=== PATIENT | female | born 1950 | race African-American/Black ===

== ENCOUNTER 2017-11-01 10:25 | Emergency (ER) | payer MEDICARE, MEDICAID ==
[~2017-11-01] VITALS: Ht 157.5 cm; Wt 60.0 kg
[~2017-11-01 10:25] MED LIST: ACET-2853 PO; ALEN70TA46 PO; AMLO5TAB88 PO; CHOL100062 PO; COR3 PO; COUMADIN PO; DILT180C3 PO; DOCU250C69 PO; FERR-63 PO; FLEC50TA2 PO; GABA-531 PO; HYDR-4005 PO; HYDR200T35 PO; LACT10SO6 PO; LIDO40SO4 TP; OMEP20TA2 PO; SODI650T PO; TRAM50TA3 PO; TRIA454O TP; WARF2TAB57 PO
[2017-11-01] MEDS ORDERED: DIAZEPAM 5 MG TABLET PO ONE (11:00)
[2017-11-01 15:30] VITALS: BP 130/86
== END 2017-11-01 18:26 | disposition home or self-care (01) ==
LOC: ER 10:25
DX: M54.12 Radiculopathy, cervical region (principal); I50.9 Heart failure, unspecified; I48.91 Unspecified atrial fibrillation; M32.9 Systemic lupus erythematosus, unspecified; Z96.649 Presence of unspecified artificial hip joint
CPT/HCPCS: 72125; 99284

== ENCOUNTER 2018-07-09 15:29 | Inpatient (IN) | payer MEDICARE, MEDICAID ==
[~2018-07-09] VITALS: Ht 157.5 cm; Wt 51.0 kg
[2018-07-09] MEDS ORDERED: METHYLPREDNISOLONE SOD SUCC 125 MG/2 ML VIAL IV STA (16:12)
[2018-07-09] MEDS ORDERED: IPRATROPIUM/ALBUTEROL 0.5-3(2.5)MG/3ML NEB HHN ONE (16:15)
[2018-07-09] MEDS ORDERED: LEVOFLOXACIN 750MG PREMIX 150 ML IV ONE (16:15)
[2018-07-09 16:47] LABS: CHLORIDE 114 mEq/L (98-107)
[2018-07-09 16:50] LABS: HEMATOCRIT. 35.1 % (36.0-48.0); HEMOGLOBIN. 11.5 g/dL (12.0-16.0); MEAN CORPUSCULAR HEMOGLOBIN 32.8 pg (28.0-32.0); MEAN CORPUSCULAR VOLUME 100.3 fL (81.0-99.0); MEAN PLATELET VOLUME 6.3 fl (7.4-10.4); PLATELET 276 x1000/uL (130-400); RED BLOOD CELL COUNT 3.49 mill/uL (4.2-5.4)
[2018-07-09 17:00] LABS: INR 2.5; PARTIAL THROMBOPLASTIN TIME 30.1 sec (23.4-31.0); PROTHROMBIN TIME 24.6 sec (9.1-11.1)
[2018-07-09 17:08] LABS: BG BASE EXCESS -6.2 mmol/L (-2.0-2.0); BG CARBOXYHEMOGLOBIN 0.8 % (0.5-1.5); BG DEOXYHEMOGLOBIN 11.1 % (0.0-5.0); BG FRACTION INSPIRED OXYGEN 28; BG HCO3 ACT 17.9 mmol/L (22.0-26.0); BG METHEMOGLOBIN 0.3 % (0.0-1.5); BG OXYGEN SATURATION 88.8 % (92.0-98.5); BG OXYHEMOGLOBIN 87.8 % (94.0-97.0); BG PCO2 30.6 mmHg (35.0-45.0); BG PH 7.385 (7.350-7.450); BG PO2 60.3 mmHg (75.0-100.0); BG SAMPLE SITE RIGHT BRACHIAL; BG TOTAL HEMOGLOBIN 10.3 g/dL (12.0-18.0); BG VENT MODE NASAL CANNULA
[2018-07-09 17:45] LABS: ATYPICAL LYMPHOCYTES 2; PLATELET ESTIMATE NORMAL
[2018-07-09] MEDS ORDERED: FUROSEMIDE 40MG/4ML VIAL IVP ONE (17:45)
[2018-07-09] MEDS ORDERED: MAGNESIUM/ALUMINUM HYDROXIDE/SIMETHICONE 30ML UDC PO PRN (22:00)
[2018-07-09] MEDS ORDERED: IPRATROPIUM/ALBUTEROL 0.5-3(2.5)MG/3ML NEB INH PRN (22:00)
[2018-07-09] MEDS ORDERED: HYDROCODONE/APAP 7.5/325MG 1 TAB TABLET PO PRN (22:00)
[2018-07-09] MEDS ORDERED: TRAMADOL 50MG TABLET PO PRN (22:00)
[2018-07-09] MEDS ORDERED: CLONIDINE 0.1MG TABLET PO PRN (22:00)
[2018-07-09 22:30] VITALS: BP 141/66
[2018-07-10] MEDS ORDERED: WARFARIN SODIUM 5MG TABLET PO NR
[2018-07-10] MEDS ORDERED: WARF2.5T47 PO (00:26)
[2018-07-10 00:27] VITALS: BP 114/65
[2018-07-10] MEDS ORDERED: ACET-2708 PO (00:50)
[2018-07-10 04:00] VITALS: BP 125/73
[2018-07-10] MEDS: GABAPENTIN 300MG CAPSULE PO SCH ×4 (06:00→21:40)
[2018-07-10] MEDS: OMEPRAZOLE 20MG CAPSULE EXTENDED RELEASE PO SCH (06:04)
[2018-07-10 07:24] LABS: CHLORIDE 111 mEq/L (98-107)
[2018-07-10 07:30] LABS: PHOSPHORUS 3.4 mg/dL (2.5-4.9)
[2018-07-10 07:32] LABS: HEMATOCRIT. 30.2 % (36.0-48.0); HEMOGLOBIN. 9.6 g/dL (12.0-16.0); MEAN CORPUSCULAR HEMOGLOBIN 31.9 pg (28.0-32.0); MEAN CORPUSCULAR VOLUME 100.1 fL (81.0-99.0); MEAN PLATELET VOLUME 6.4 fl (7.4-10.4); PLATELET 227 x1000/uL (130-400); RED BLOOD CELL COUNT 3.02 mill/uL (4.2-5.4); RED CELL DISTRIBUTION WIDTH 15.1 % (11.6-14.6)
[2018-07-10 08:00] VITALS: BP 121/77
[2018-07-10] MEDS ORDERED: SULF1TAB48 MT (08:02)
[2018-07-10] MEDS ORDERED: COR6 PO (08:02)
[2018-07-10] MEDS ORDERED: FEXO180T87 PO (08:02)
[2018-07-10] MEDS ORDERED: SACC250C9 PO (08:02)
[2018-07-10] MEDS ORDERED: BACL-141 PO (08:02)
[2018-07-10] MEDS ORDERED: FLUT15.88 BOTHNSTRLS (08:02)
[2018-07-10] MEDS ORDERED: HYDROXINE PO (08:02)
[2018-07-10 08:26] LABS: INR 2.9; PROTHROMBIN TIME 28.3 sec (9.1-11.1)
[2018-07-10] MEDS ORDERED: SODIUM BICARBONATE 650 MG TABLET PO SCH (09:00)
[2018-07-10] MEDS ORDERED: AMLODIPINE 5MG TABLET PO SCH (09:00)
[2018-07-10 09:52] LABS: BG BASE EXCESS -6.1 mmol/L (-2.0-2.0); BG CARBOXYHEMOGLOBIN 0.6 % (0.5-1.5); BG DEOXYHEMOGLOBIN 5.7 % (0.0-5.0); BG FRACTION INSPIRED OXYGEN 28; BG HCO3 ACT 17.2 mmol/L (22.0-26.0); BG METHEMOGLOBIN 0.3 % (0.0-1.5); BG OXYGEN SATURATION 94.2 % (92.0-98.5); BG OXYHEMOGLOBIN 93.4 % (94.0-97.0); BG PCO2 26.9 mmHg (35.0-45.0); BG PH 7.423 (7.350-7.450); BG PO2 77.2 mmHg (75.0-100.0); BG SAMPLE SITE LEFT BRACHIAL; BG VENT MODE NASAL CANNULA
[2018-07-10 12:00] VITALS: BP 130/92
[2018-07-10] MEDS: CHOLECALCIFEROL (D3) 1000 UNIT TABLET PO SCH (12:00)
[2018-07-10] MEDS: DOCUSATE SODIUM 100MG CAPSULE PO PRN ×2 (12:01→12:05)
[2018-07-10] MEDS: FERROUS SULFATE 325MG TABLET PO SCH (12:01)
[2018-07-10] MEDS: HYDROXYCHLOROQUINE SULFATE 200MG TABLET PO SCH ×2 (12:01→18:46)
[2018-07-10] MEDS: DILTIAZEM HCL 180MG CAPSULE CD 24HR PO SCH (12:01)
[2018-07-10] MEDS: CARVEDILOL 3.125 MG TABLET PO SCH ×2 (12:02→21:35)
[2018-07-10] MEDS: FLECAINIDE 50MG TABLET PO SCH ×2 (12:04→12:12)
[2018-07-10] MEDS: DOCUSATE SODIUM 250MG CAPSULE PO SCH (12:37)
[2018-07-10 14:50] LABS: PLATELET ESTIMATE NORMAL
[2018-07-10 16:05] VITALS: BP 128/68
[2018-07-10] MEDS ORDERED: WARFARIN SODIUM 2MG TABLET PO NR (18:00)
[2018-07-10] MEDS: CEFTRIAXONE 1 G PREMIX 50 ML IV SCH (18:46)
[2018-07-10 20:00] VITALS: BP 125/82
[2018-07-10] MEDS: SULFAMETHOXAZOLE/TRIMETHOPRIM 800/160MG TABLET PO SCH (21:34)
[2018-07-10] MEDS: ACETAMINOPHEN 325MG TABLET PO PRN (23:17)
[2018-07-11] VITALS: BP 125/80
[2018-07-11 04:00] VITALS: BP 118/69
[2018-07-11] MEDS: GABAPENTIN 300MG CAPSULE PO SCH ×3 (06:00→21:21)
[2018-07-11] MEDS: OMEPRAZOLE 20MG CAPSULE EXTENDED RELEASE PO SCH (06:34)
[2018-07-11 06:50] LABS: HEMATOCRIT. 30.3 % (36.0-48.0); HEMOGLOBIN. 9.5 g/dL (12.0-16.0); MEAN CORPUSCULAR HEMOGLOBIN 31.7 pg (28.0-32.0); MEAN CORPUSCULAR VOLUME 101.3 fL (81.0-99.0); MEAN PLATELET VOLUME 6.6 fl (7.4-10.4); PLATELET 216 x1000/uL (130-400); RED BLOOD CELL COUNT 2.99 mill/uL (4.2-5.4); RED CELL DISTRIBUTION WIDTH 15.4 % (11.6-14.6)
[2018-07-11 07:01] LABS: INR 2.6; PROTHROMBIN TIME 25.4 sec (9.1-11.1)
[2018-07-11 08:00] VITALS: BP 119/68
[2018-07-11] MEDS: CARVEDILOL 3.125 MG TABLET PO SCH ×2 (09:10→21:00)
[2018-07-11] MEDS: SULFAMETHOXAZOLE/TRIMETHOPRIM 800/160MG TABLET PO SCH ×2 (09:10→21:21)
[2018-07-11] MEDS: HYDROXYCHLOROQUINE SULFATE 200MG TABLET PO SCH ×2 (09:10→16:38)
[2018-07-11] MEDS: FERROUS SULFATE 325MG TABLET PO SCH (09:10)
[2018-07-11] MEDS: DILTIAZEM HCL 180MG CAPSULE CD 24HR PO SCH (09:10)
[2018-07-11] MEDS: CHOLECALCIFEROL (D3) 1000 UNIT TABLET PO SCH (09:10)
[2018-07-11] MEDS: DOCUSATE SODIUM 250MG CAPSULE PO SCH (09:10)
[2018-07-11 10:09] LABS: CHLORIDE 112 mEq/L (98-107)
[2018-07-11 10:47] LABS: PLATELET ESTIMATE NORMAL
[2018-07-11 12:00] VITALS: BP 123/76
[2018-07-11 16:00] VITALS: BP 118/68
[2018-07-11] MEDS: CEFTRIAXONE 1 G PREMIX 50 ML IV SCH (16:36)
[2018-07-11] MEDS ORDERED: WARFARIN SODIUM 2.5MG TABLET PO NR (18:00)
[2018-07-11 20:00] VITALS: BP 108/75
[2018-07-11] MEDS: ACETAMINOPHEN 325MG TABLET PO PRN (23:21)
[2018-07-12] VITALS: BP 128/77
[2018-07-12] MEDS: DILTIAZEM HCL 60MG TABLET PO SCH ×5 (00:16→18:52)
[2018-07-12 04:00] VITALS: BP 116/70
[2018-07-12] MEDS: GABAPENTIN 300MG CAPSULE PO SCH ×3 (05:06→22:06)
[2018-07-12 07:49] LABS: INR 2.3; PROTHROMBIN TIME 22.6 sec (9.1-11.1)
[2018-07-12 08:00] VITALS: BP 113/73
[2018-07-12] MEDS: DOCUSATE SODIUM 250MG CAPSULE PO SCH (09:30)
[2018-07-12] MEDS: SULFAMETHOXAZOLE/TRIMETHOPRIM 800/160MG TABLET PO SCH ×2 (09:30→21:00)
[2018-07-12] MEDS: FERROUS SULFATE 325MG TABLET PO SCH (09:31)
[2018-07-12] MEDS: HYDROXYCHLOROQUINE SULFATE 200MG TABLET PO SCH ×2 (09:31→18:52)
[2018-07-12] MEDS: CHOLECALCIFEROL (D3) 1000 UNIT TABLET PO SCH (09:31)
[2018-07-12] MEDS: CARVEDILOL 6.25 MG TABLET PO SCH ×2 (09:31→21:00)
[2018-07-12] MEDS: FAMOTIDINE 20MG TABLET PO SCH (09:32)
[2018-07-12 11:48] VITALS: BP 104/76
[2018-07-12 15:38] LABS: PROTHROMBIN TIME 20.3 sec (9.1-11.1)
[2018-07-12 15:59] VITALS: BP 119/71
[2018-07-12] MEDS ORDERED: WARFARIN SODIUM 3MG TABLET PO NR (18:00)
[2018-07-12] MEDS: CEFTRIAXONE 1 G PREMIX 50 ML IV SCH (18:52)
[2018-07-12 20:00] VITALS: BP 128/77
[2018-07-12] MEDS: ACETAMINOPHEN 325MG TABLET PO PRN (23:36)
[2018-07-13] VITALS: BP 127/63
[2018-07-13 04:00] VITALS: BP 126/87
[2018-07-13 06:03] LABS: INR 1.9; PROTHROMBIN TIME 18.7 sec (9.1-11.1)
[2018-07-13 06:04] LABS: BASOPHILS % 0.7 % (0.0-2.0); EOSINOPHILS % 2.5 % (0.0-5.0); HEMOGLOBIN. 10.3 g/dL (12.0-16.0); LYMPHOCYTES % 10.4 % (20.0-50.0); MEAN CORPUSCULAR HEMOGLOBIN 32.1 pg (28.0-32.0); MEAN PLATELET VOLUME 5.9 fl (7.4-10.4); MONOCYTES % 14.4 % (2.0-8.0); PLATELET 226 x1000/uL (130-400); RED CELL DISTRIBUTION WIDTH 14.8 % (11.6-14.6)
[2018-07-13 06:15] LABS: CHLORIDE 109 mEq/L (98-107)
[2018-07-13] MEDS: GABAPENTIN 300MG CAPSULE PO SCH ×2 (06:46→06:47)
[2018-07-13] MEDS: DILTIAZEM HCL 60MG TABLET PO SCH ×2 (07:01→12:51)
[2018-07-13 08:00] VITALS: BP 118/72
[2018-07-13] MEDS: CARVEDILOL 6.25 MG TABLET PO SCH (08:38)
[2018-07-13] MEDS: SULFAMETHOXAZOLE/TRIMETHOPRIM 800/160MG TABLET PO SCH (08:38)
[2018-07-13] MEDS: CHOLECALCIFEROL (D3) 1000 UNIT TABLET PO SCH (08:38)
[2018-07-13] MEDS: HYDROXYCHLOROQUINE SULFATE 200MG TABLET PO SCH (08:38)
[2018-07-13] MEDS: FAMOTIDINE 20MG TABLET PO SCH (08:38)
[2018-07-13] MEDS: FERROUS SULFATE 325MG TABLET PO SCH (08:38)
[2018-07-13] MEDS: DOCUSATE SODIUM 250MG CAPSULE PO SCH (08:39)
[2018-07-13 11:15] VITALS: BP 118/72
[2018-07-13] MEDS ORDERED: WARFARIN SODIUM 2MG TABLET PO NR (18:00)
== END 2018-07-13 15:05 | disposition home or self-care (01) | DRG 291 ==
LOC: ER 15:29 → 8WST 18:45 → EDBEDREQ 19:04 → ENRESERV 20:59
PROVIDERS: ADMIT Family Medicine Adult Medicine; ATTEND Family Medicine Adult Medicine
DX: I11.0 Hypertensive heart disease with heart failure (principal); I50.21 Acute systolic (congestive) heart failure; I48.1 Persistent atrial fibrillation; D68.9 Coagulation defect, unspecified; M32.9 Systemic lupus erythematosus, unspecified; D75.9 Disease of blood and blood-forming organs, unspecified; D64.9 Anemia, unspecified; Z96.641 Presence of right artificial hip joint; M81.0 Age-related osteoporosis without current pathological fracture; Z79.01 Long term (current) use of anticoagulants; Z86.74 Personal history of sudden cardiac arrest; Z87.891 Personal history of nicotine dependence; Z95.0 Presence of cardiac pacemaker; Z95.2 Presence of prosthetic heart valve; Z88.8 Allergy status to other drugs, medicaments and biological substances; Z79.899 Other long term (current) drug therapy
CPT/HCPCS: 36415; 36600; 71045; 80048; 82375; 82805; 83605; 83735; 83880; 84100; 84145; 84443; 84484; 93005; 93306; 93970; 94640; 96365; 96366; 99285; J0696; J1940; J1956; J2930; J7050; J7620

== ENCOUNTER → 2018-10-17 | Outpatient (CLI) | payer MEDICARE, MEDICAID ==
[~2018-10-17] MED LIST changes: +ACET-2708 PO; -ACET-2853 PO; -ALEN70TA46 PO; +ALEN70TA68 PO; +BACL-141 PO; -COR3 PO; +COR6 PO; -COUMADIN PO; +DILT60TA3 PO; -DOCU250C69 PO; +FEXO180T87 PO; +FLUT15.88 BOTHNSTRLS; +FURO-151 MT; -GABA-531 PO; +HYDR-459 MT; +HYDROXINE PO; -LACT10SO6 PO; -OMEP20TA2 PO; +POTA20TA82 MT; +SACC250C9 PO; -SODI650T PO; +SULF1TAB48 MT; -TRAM50TA3 PO; +WARF2.5T47 PO; -WARF2TAB57 PO; +WARF3TAB58 PO
[2018-10-17 12:22] LABS: HEMATOCRIT. 33.1 % (36.0-48.0); HEMOGLOBIN. 10.8 g/dL (12.0-16.0); MEAN CORPUSCULAR HEMOGLOBIN 32.1 pg (28.0-32.0); MEAN CORPUSCULAR VOLUME 98.9 fL (81.0-99.0); MEAN PLATELET VOLUME 6.3 fl (7.4-10.4); PLATELET 262 x1000/uL (130-400); RED BLOOD CELL COUNT 3.35 mill/uL (4.2-5.4); RED CELL DISTRIBUTION WIDTH 15.9 % (11.6-14.6)
[2018-10-17 14:25] LABS: PLATELET ESTIMATE NORMAL
== END | disposition home or self-care (01) ==
LOC: LAB 11:30
PROVIDERS: ATTEND Internal Medicine Clinical Cardiac Electrophysiology
DX: I48.1 Persistent atrial fibrillation (principal); I11.0 Hypertensive heart disease with heart failure; I50.41 Acute combined systolic (congestive) and diastolic (congestive) heart failure; I48.4 Atypical atrial flutter
CPT/HCPCS: 36415; 80048; 83735

== ENCOUNTER → 2018-10-21 | Outpatient (CLI) | payer MEDICARE, MEDICAID ==
[~2018-10-21] MED LIST changes: -DILT60TA3 PO; -FURO-151 MT; -HYDR-459 MT; -POTA20TA82 MT; -WARF3TAB58 PO
== END | disposition home or self-care (01) ==
LOC: RAD 11:34
PROVIDERS: ATTEND Internal Medicine Clinical Cardiac Electrophysiology
DX: I48.1 Persistent atrial fibrillation (principal); I48.4 Atypical atrial flutter; I50.41 Acute combined systolic (congestive) and diastolic (congestive) heart failure; Z98.890 Other specified postprocedural states; Z95.0 Presence of cardiac pacemaker
CPT/HCPCS: 71045

== ENCOUNTER 2018-11-15 14:08 | Inpatient (IN) | payer MEDICARE, MEDICAID ==
[~2018-11-15] VITALS: Ht 154.9 cm; Wt 55.0 kg
[~2018-11-15 14:08] MED LIST changes: -FEXO180T87 PO; -FLUT15.88 BOTHNSTRLS; +FURO-151 MT
[2018-11-15] MEDS ORDERED: SODIUM CHLORIDE 0.9% 1000ML BAG (SEPSIS BOLUS) IV ONE (14:30)
[2018-11-15 15:45] LABS: CHLORIDE 110 mEq/L (98-107)
[2018-11-15 15:50] LABS: PROTHROMBIN TIME 52.4 sec (9.6-11.0)
[2018-11-15 15:59] LABS: HEMATOCRIT. 35.6 % (36.0-48.0); HEMOGLOBIN. 11.5 g/dL (12.0-16.0); MEAN CORPUSCULAR HEMOGLOBIN 32.2 pg (28.0-32.0); MEAN CORPUSCULAR VOLUME 99.7 fL (81.0-99.0); MEAN PLATELET VOLUME 7.1 fl (7.4-10.4); PLATELET 507 x1000/uL (130-400); RED BLOOD CELL COUNT 3.57 mill/uL (4.2-5.4); RED CELL DISTRIBUTION WIDTH 16.2 % (11.6-14.6)
[2018-11-15 16:16] LABS: CLARITY URINE TURBID (CLEAR); COLOR URINE DARK YELLOW (YELLOW); KETONES URINE TRACE (NEGATIVE); LEUKOCYTE ESTERASE URINE 1+ (NEGATIVE); NITRITE URINE NEGATIVE (NEGATIVE); OCCULT BLOOD URINE 2+ (NEGATIVE); PROTEIN URINE 2+ (NEGATIVE); SPECIFIC GRAVITY URINE 1.027 (1.005-1.030)
[2018-11-15] MEDS ORDERED: CEFTRIAXONE 1 G PREMIX 50 ML IV NR (16:30)
[2018-11-15 16:43] LABS: INR 5.5
[2018-11-15 16:56] LABS: BG BASE EXCESS -6.2 mmol/L (-2.0-2.0); BG CARBOXYHEMOGLOBIN 0.1 % (0.5-1.5); BG DEOXYHEMOGLOBIN 2.2 % (0.0-5.0); BG FRACTION INSPIRED OXYGEN 99.8; BG HCO3 ACT 19.9 mmol/L (22.0-26.0); BG METHEMOGLOBIN 0.3 % (0.0-1.5); BG OXYGEN SATURATION 97.8 % (92.0-98.5); BG OXYHEMOGLOBIN 97.4 % (94.0-97.0); BG PCO2 41.8 mmHg (35.0-45.0); BG PH 7.295 (7.350-7.450); BG PO2 129.9 mmHg (75.0-100.0); BG SAMPLE SITE LEFT RADIAL; BG TOTAL HEMOGLOBIN 10.9 g/dL (12.0-18.0); BG VENT MODE MASK - NRB
[2018-11-15 19:22] LABS: PLATELET ESTIMATE INCREASED
[2018-11-15] MEDS ORDERED: FUROSEMIDE 40MG/4ML VIAL IVP ONE (19:30)
[2018-11-15] MEDS ORDERED: HYDROCODONE/ACETAMINOPHEN 10/325MG TABLET PO PRN (23:15)
[2018-11-15] MEDS ORDERED: LORAZEPAM 2MG/ML CPJ IV PRN (23:15)
[2018-11-15] MEDS ORDERED: CLONIDINE 0.1MG TABLET PO PRN (23:15)
[2018-11-15] MEDS ORDERED: MAGNESIUM/ALUMINUM HYDROXIDE/SIMETHICONE 30ML UDC PO PRN (23:15)
[2018-11-15] MEDS ORDERED: DOCUSATE SODIUM 100MG CAPSULE PO PRN (23:15)
[2018-11-15] MEDS ORDERED: ONDANSETRON HCL 4MG/2ML INJ IV PRN (23:15)
[2018-11-15] MEDS ORDERED: ENOXAPARIN 40MG/0.4ML SYR SUBCUT SCH (23:15)
[2018-11-15] MEDS ORDERED: NA PHOS,M-B/NA PHOS,DI-BA ENEMA 118ML PR PRN (23:15)
[2018-11-15] MEDS ORDERED: DIPHENHYDRAMINE 50MG/ML VIAL IV PRN (23:15)
[2018-11-15] MEDS ORDERED: GUAIFENESIN 200MG/10ML SUGAR FREE UDC PO PRN (23:15)
[2018-11-15] MEDS ORDERED: MORPHINE SULFATE 2 MG/ML CPJ (NOT FOR IM USE) IV PRN (23:15)
[2018-11-16] VITALS (18 sets, daily range): BP systolic 86–129; BP diastolic 25–79
[2018-11-16] MEDS ORDERED: SODIUM POLYSTYRENE SULFONATE 15 G/60 ML BOT PO NR (03:00)
[2018-11-16] MEDS: IPRATROPIUM/ALBUTEROL 0.5-3(2.5)MG/3ML NEB INH PRN (05:17)
[2018-11-16 07:28] LABS: HEMATOCRIT. 34.4 % (36.0-48.0); HEMOGLOBIN. 10.9 g/dL (12.0-16.0); MEAN CORPUSCULAR HEMOGLOBIN 32.2 pg (28.0-32.0); MEAN CORPUSCULAR VOLUME 101.8 fL (81.0-99.0); MEAN PLATELET VOLUME 6.7 fl (7.4-10.4); PLATELET 441 x1000/uL (130-400); RED BLOOD CELL COUNT 3.38 mill/uL (4.2-5.4); RED CELL DISTRIBUTION WIDTH 16.3 % (11.6-14.6)
[2018-11-16 07:41] LABS: CHLORIDE 114 mEq/L (98-107)
[2018-11-16 07:50] LABS: LDL CHOLESTEROL 83 mg/dL (5-100)
[2018-11-16 07:52] LABS: HDL CHOLESTEROL 35 mg/dL (40-59); T4 FREE 0.83 ng/dL (0.76-1.46)
[2018-11-16] MEDS ORDERED: SODIUM BICARBONATE 8.4% 1 MEQ/ML 50ML SYR IV SCH (09:30)
[2018-11-16] MEDS ORDERED: INSULIN REGULAR (HUMULIN R) UD 100 UNITS/ML SYR IV SCH (09:30)
[2018-11-16] MEDS ORDERED: SODIUM POLYSTYRENE SULFONATE 15 G/60 ML BOT PO SCH (09:30)
[2018-11-16] MEDS ORDERED: DEXTROSE 50% WATER 50ML SYRINGE IV SCH (09:30)
[2018-11-16] MEDS ORDERED: CALCIUM CHLORIDE 1,000 MG in DEXT 5% WATER 90 ML IV SCH (09:30)
[2018-11-16] MEDS: FUROSEMIDE 40MG/4ML VIAL IV SCH ×2 (09:51→18:03)
[2018-11-16] MEDS: ASPIRIN 81MG EC TABLET PO SCH (09:51)
[2018-11-16 12:15] LABS: BG BASE EXCESS -4.8 mmol/L (-2.0-2.0); BG CARBOXYHEMOGLOBIN 0.1 % (0.5-1.5); BG DEOXYHEMOGLOBIN 1.7 % (0.0-5.0); BG FRACTION INSPIRED OXYGEN 80; BG HCO3 ACT 21.5 mmol/L (22.0-26.0); BG METHEMOGLOBIN 0.2 % (0.0-1.5); BG OXYGEN SATURATION 98.3 % (92.0-98.5); BG PCO2 45.1 mmHg (35.0-45.0); BG PH 7.296 (7.350-7.450); BG PO2 136.4 mmHg (75.0-100.0); BG SAMPLE SITE RIGHT BRACHIAL; BG TOTAL HEMOGLOBIN 10.8 g/dL (12.0-18.0); BG VENT MODE MASK - BIPAP; BG VENT RATE 16 set
[2018-11-16 12:44] LABS: PLATELET ESTIMATE INCREASED
[2018-11-16] MEDS ORDERED: METOLAZONE 5MG TABLET PO SCH (16:45)
[2018-11-17] VITALS (12 sets, daily range): BP systolic 86–117; BP diastolic 48–72
[2018-11-17] MEDS ORDERED: DILT60TA3 PO (00:04)
[2018-11-17] MEDS ORDERED: HYDR200T35 PO (00:15)
[2018-11-17] MEDS ORDERED: WARF3TAB58 PO (00:18)
[2018-11-17] MEDS: DILTIAZEM HCL 60MG TABLET PO SCH ×5 (01:45→23:52)
[2018-11-17] MEDS ORDERED: DIGOXIN 500MCG/2ML AMP IV NR (01:45)
[2018-11-17] MEDS ORDERED: DIGOXIN 250MCG TABLET PO NR (01:45)
[2018-11-17] MEDS: CARVEDILOL 6.25 MG TABLET PO SCH ×3 (02:20→20:15)
[2018-11-17] MEDS ORDERED: HYDROXINE PO PRN (07:30)
[2018-11-17] MEDS ORDERED: HYDROXYZINE 25MG TABLET PO PRN (08:00)
[2018-11-17] MEDS ORDERED: MEDICATION NOT ON FORMULARY EA (Hydroxychloroquine Sulfate 200 MG) PO SCH (09:00)
[2018-11-17] MEDS: ASPIRIN 81MG EC TABLET PO SCH (09:28)
[2018-11-17] MEDS: CHOLECALCIFEROL (D3) 1000 UNIT TABLET PO SCH (09:29)
[2018-11-17] MEDS: BACLOFEN 10MG TABLET PO SCH ×2 (09:29→17:36)
[2018-11-17] MEDS: HYDROXYCHLOROQUINE SULFATE 200MG TABLET PO SCH ×2 (09:30→20:15)
[2018-11-17] MEDS: FERROUS SULFATE 325MG TABLET PO SCH ×2 (09:30→09:31)
[2018-11-17] MEDS: TRIAMCINOLONE ACETONIDE 0.1 % OINT 15GM TOP SCH ×2 (09:31→17:38)
[2018-11-17] MEDS: IPRATROPIUM/ALBUTEROL 0.5-3(2.5)MG/3ML NEB INH PRN (10:19)
[2018-11-17] MEDS: FUROSEMIDE 40MG/4ML VIAL IV SCH ×2 (11:28→17:15)
[2018-11-17 11:31] LABS: BG BASE EXCESS -2.9 mmol/L (-2.0-2.0); BG CARBOXYHEMOGLOBIN 0.3 % (0.5-1.5); BG DEOXYHEMOGLOBIN 1.6 % (0.0-5.0); BG FRACTION INSPIRED OXYGEN 80; BG HCO3 ACT 22.8 mmol/L (22.0-26.0); BG METHEMOGLOBIN 0.1 % (0.0-1.5); BG OXYGEN SATURATION 98.4 % (92.0-98.5); BG PCO2 43.6 mmHg (35.0-45.0); BG PH 7.337 (7.350-7.450); BG PO2 142.8 mmHg (75.0-100.0); BG SAMPLE SITE RIGHT RADIAL; BG TOTAL HEMOGLOBIN 9.9 g/dL (12.0-18.0); BG VENT MODE MASK - BIPAP; BG VENT RATE 16 set
[2018-11-17 11:34] LABS: HEMATOCRIT. 30.8 % (36.0-48.0); MEAN CORPUSCULAR HEMOGLOBIN 32.4 pg (28.0-32.0); MEAN CORPUSCULAR VOLUME 100.2 fL (81.0-99.0); MEAN PLATELET VOLUME 7.1 fl (7.4-10.4); PLATELET 431 x1000/uL (130-400); RED BLOOD CELL COUNT 3.07 mill/uL (4.2-5.4); RED CELL DISTRIBUTION WIDTH 16.2 % (11.6-14.6)
[2018-11-17 13:05] LABS: PLATELET ESTIMATE SLIGHTLY INCREASED
[2018-11-17 16:19] LABS: PROTHROMBIN TIME 46.5 sec (9.6-11.0)
[2018-11-17 16:31] LABS: INR 4.8
[2018-11-17] MEDS ORDERED: HYDROXYCHLOROQUINE SULFATE 100 MG PO SCH (18:00)
[2018-11-17] MEDS: POTASSIUM CHLORIDE 20MEQ TABLET SR PO SCH (19:28)
[2018-11-17] MEDS: LACTOBACILLUS GG CAPSULE PO SCH (19:29)
[2018-11-17] MEDS: SULFAMETHOXAZOLE/TRIMETHOPRIM 800/160MG TABLET PO SCH (20:20)
[2018-11-18] VITALS (15 sets, daily range): BP systolic 91–118; BP diastolic 51–76
[2018-11-18] MEDS: DILTIAZEM HCL 60MG TABLET PO SCH ×3 (06:00→20:44)
[2018-11-18] MEDS: FUROSEMIDE 40MG/4ML VIAL IV SCH (06:46)
[2018-11-18 07:01] LABS: BASOPHILS % 0.2 % (0.0-2.0); EOSINOPHILS % 4.6 % (0.0-5.0); HEMATOCRIT. 31.1 % (36.0-48.0); LYMPHOCYTES % 8.2 % (20.0-50.0); MEAN CORPUSCULAR HEMOGLOBIN 32.5 pg (28.0-32.0); MEAN PLATELET VOLUME 6.4 fl (7.4-10.4); MONOCYTES % 12.3 % (2.0-8.0); NEUTROPHILS % 74.7 % (40.0-76.0); PLATELET 322 x1000/uL (130-400); RED BLOOD CELL COUNT 3.07 mill/uL (4.2-5.4); RED CELL DISTRIBUTION WIDTH 15.6 % (11.6-14.6)
[2018-11-18] MEDS: FERROUS SULFATE 325MG TABLET PO SCH (08:27)
[2018-11-18] MEDS: LACTOBACILLUS GG CAPSULE PO SCH (08:27)
[2018-11-18] MEDS: HYDROXYCHLOROQUINE SULFATE 200MG TABLET PO SCH ×2 (08:27→20:45)
[2018-11-18] MEDS: POTASSIUM CHLORIDE 20MEQ TABLET SR PO SCH (08:27)
[2018-11-18] MEDS: CHOLECALCIFEROL (D3) 1000 UNIT TABLET PO SCH (08:27)
[2018-11-18] MEDS: ASPIRIN 81MG EC TABLET PO SCH (08:27)
[2018-11-18] MEDS: BACLOFEN 10MG TABLET PO SCH ×2 (08:27→17:15)
[2018-11-18] MEDS: SULFAMETHOXAZOLE/TRIMETHOPRIM 800/160MG TABLET PO SCH ×2 (08:27→20:45)
[2018-11-18] MEDS: TRIAMCINOLONE ACETONIDE 0.1 % OINT 15GM TOP SCH ×2 (08:28→17:14)
[2018-11-18] MEDS: CARVEDILOL 6.25 MG TABLET PO SCH ×2 (09:00→22:35)
[2018-11-18] MEDS ORDERED: FUROSEMIDE 40MG/4ML VIAL IVP NR ×2 (10:15→23:00)
[2018-11-18] MEDS ORDERED: LANSOPRAZOLE 30MG DR CAPSULE NG NR (10:15)
[2018-11-18 15:36] LABS: PROTHROMBIN TIME 19.6 sec (9.6-11.0)
[2018-11-18] MEDS ORDERED: HYDR-459 MT (16:52)
[2018-11-18] MEDS ORDERED: POTA20TA82 MT (16:53)
[2018-11-18] MEDS: IPRATROPIUM/ALBUTEROL 0.5-3(2.5)MG/3ML NEB INH PRN (21:14)
[2018-11-18] MEDS ORDERED: METOLAZONE 2.5MG TABLET PO NR (22:30)
[2018-11-19] VITALS (12 sets, daily range): BP systolic 86–116; BP diastolic 53–96
[2018-11-19] MEDS: DILTIAZEM HCL 60MG TABLET PO SCH ×4 (02:54→18:45)
[2018-11-19] MEDS: ACETAMINOPHEN 325MG TABLET PO PRN ×2 (02:57→23:29)
[2018-11-19] MEDS: LANSOPRAZOLE 30MG DR CAPSULE NG SCH (05:51)
[2018-11-19 07:02] LABS: INR 1.6; PROTHROMBIN TIME 16.4 sec (9.6-11.0)
[2018-11-19 07:10] LABS: HEMATOCRIT. 29.1 % (36.0-48.0); HEMOGLOBIN. 9.7 g/dL (12.0-16.0); MEAN CORPUSCULAR VOLUME 99.4 fL (81.0-99.0); MEAN PLATELET VOLUME 6.7 fl (7.4-10.4); PLATELET 354 x1000/uL (130-400); RED BLOOD CELL COUNT 2.93 mill/uL (4.2-5.4); RED CELL DISTRIBUTION WIDTH 15.6 % (11.6-14.6)
[2018-11-19 07:45] LABS: CHLORIDE 105 mEq/L (98-107)
[2018-11-19] MEDS: FUROSEMIDE 40MG/4ML VIAL IVP SCH (08:32)
[2018-11-19] MEDS: POTASSIUM CHLORIDE 20MEQ TABLET SR PO SCH (08:32)
[2018-11-19] MEDS: SULFAMETHOXAZOLE/TRIMETHOPRIM 800/160MG TABLET PO SCH ×2 (08:32→22:03)
[2018-11-19] MEDS: CHOLECALCIFEROL (D3) 1000 UNIT TABLET PO SCH (08:33)
[2018-11-19] MEDS: LACTOBACILLUS GG CAPSULE PO SCH (08:33)
[2018-11-19] MEDS: FERROUS SULFATE 325MG TABLET PO SCH (08:33)
[2018-11-19] MEDS: HYDROXYCHLOROQUINE SULFATE 200MG TABLET PO SCH ×2 (08:33→22:03)
[2018-11-19] MEDS: BACLOFEN 10MG TABLET PO SCH ×2 (08:33→16:41)
[2018-11-19] MEDS: ASPIRIN 81MG EC TABLET PO SCH (08:33)
[2018-11-19] MEDS: CARVEDILOL 6.25 MG TABLET PO SCH ×2 (08:35→22:04)
[2018-11-19] MEDS: TRIAMCINOLONE ACETONIDE 0.1 % OINT 15GM TOP SCH ×2 (08:39→16:42)
[2018-11-19] MEDS: IPRATROPIUM/ALBUTEROL 0.5-3(2.5)MG/3ML NEB INH PRN ×2 (16:20→20:49)
[2018-11-19 18:47] LABS: PLATELET ESTIMATE NORMAL
[2018-11-20] VITALS (12 sets, daily range): BP systolic 86–115; BP diastolic 48–69
[2018-11-20] MEDS: DILTIAZEM HCL 60MG TABLET PO SCH ×4 (00:11→17:37)
[2018-11-20] MEDS: IPRATROPIUM/ALBUTEROL 0.5-3(2.5)MG/3ML NEB INH PRN ×6 (00:41→21:01)
[2018-11-20] MEDS ORDERED: ENOXAPARIN 60MG/0.6ML SYR SUBCUT ONE (01:30)
[2018-11-20] MEDS ORDERED: METOLAZONE 2.5MG TABLET PO ONE (03:00)
[2018-11-20] MEDS ORDERED: FUROSEMIDE 40MG/4ML VIAL IVP ONE (03:30)
[2018-11-20] MEDS: LANSOPRAZOLE 30MG DR CAPSULE NG SCH (06:09)
[2018-11-20 06:34] LABS: HEMATOCRIT. 31.2 % (36.0-48.0); MEAN CORPUSCULAR HEMOGLOBIN 32.4 pg (28.0-32.0); MEAN CORPUSCULAR VOLUME 100.7 fL (81.0-99.0); MEAN PLATELET VOLUME 6.6 fl (7.4-10.4); PLATELET 328 x1000/uL (130-400); RED CELL DISTRIBUTION WIDTH 15.8 % (11.6-14.6)
[2018-11-20 06:39] LABS: INR 1.3; PROTHROMBIN TIME 13.4 sec (9.6-11.0)
[2018-11-20] MEDS: FUROSEMIDE 40MG/4ML VIAL IVP SCH (09:16)
[2018-11-20] MEDS: POTASSIUM CHLORIDE 20MEQ TABLET SR PO SCH (09:17)
[2018-11-20] MEDS: LACTOBACILLUS GG CAPSULE PO SCH (09:17)
[2018-11-20] MEDS: ASPIRIN 81MG EC TABLET PO SCH (09:17)
[2018-11-20] MEDS: CHOLECALCIFEROL (D3) 1000 UNIT TABLET PO SCH (09:17)
[2018-11-20] MEDS: FERROUS SULFATE 325MG TABLET PO SCH (09:17)
[2018-11-20] MEDS: BACLOFEN 10MG TABLET PO SCH ×2 (09:17→17:35)
[2018-11-20] MEDS: SULFAMETHOXAZOLE/TRIMETHOPRIM 800/160MG TABLET PO SCH ×2 (09:17→21:47)
[2018-11-20] MEDS: HYDROXYCHLOROQUINE SULFATE 200MG TABLET PO SCH ×2 (09:18→21:50)
[2018-11-20] MEDS: CARVEDILOL 6.25 MG TABLET PO SCH ×2 (09:18→21:48)
[2018-11-20] MEDS: TRIAMCINOLONE ACETONIDE 0.1 % OINT 15GM TOP SCH ×2 (09:18→17:36)
[2018-11-20] MEDS: ENOXAPARIN 60MG/0.6ML SYR SUBCUT SCH ×2 (12:21→22:50)
[2018-11-20 12:40] LABS: PLATELET ESTIMATE NORMAL
[2018-11-20] MEDS: WARFARIN SODIUM 3MG TABLET PO SCH (17:36)
[2018-11-20] MEDS: GUAIFENESIN 600MG ER TABLET PO SCH (21:46)
[2018-11-21] VITALS (12 sets, daily range): BP systolic 90–112; BP diastolic 52–75
[2018-11-21] MEDS: DILTIAZEM HCL 60MG TABLET PO SCH ×5 (00:07→23:34)
[2018-11-21] MEDS: ACETAMINOPHEN 325MG TABLET PO PRN (00:10)
[2018-11-21] MEDS: IPRATROPIUM/ALBUTEROL 0.5-3(2.5)MG/3ML NEB INH PRN ×6 (00:12→20:51)
[2018-11-21 06:06] LABS: HEMATOCRIT. 27.2 % (36.0-48.0); MEAN CORPUSCULAR HEMOGLOBIN 32.5 pg (28.0-32.0); MEAN CORPUSCULAR VOLUME 98.4 fL (81.0-99.0); MEAN PLATELET VOLUME 6.4 fl (7.4-10.4); PLATELET 303 x1000/uL (130-400); RED BLOOD CELL COUNT 2.76 mill/uL (4.2-5.4); RED CELL DISTRIBUTION WIDTH 15.9 % (11.6-14.6)
[2018-11-21] MEDS: LANSOPRAZOLE 30MG DR CAPSULE NG SCH (06:25)
[2018-11-21 06:52] LABS: INR 1.3; PROTHROMBIN TIME 12.7 sec (9.6-11.0)
[2018-11-21] MEDS: GUAIFENESIN 600MG ER TABLET PO SCH ×2 (08:32→21:13)
[2018-11-21] MEDS: SULFAMETHOXAZOLE/TRIMETHOPRIM 800/160MG TABLET PO SCH ×2 (08:32→21:13)
[2018-11-21] MEDS: LACTOBACILLUS GG CAPSULE PO SCH (08:32)
[2018-11-21] MEDS: POTASSIUM CHLORIDE 20MEQ TABLET SR PO SCH (08:32)
[2018-11-21] MEDS: HYDROXYCHLOROQUINE SULFATE 200MG TABLET PO SCH ×2 (08:33→21:14)
[2018-11-21] MEDS: BACLOFEN 10MG TABLET PO SCH ×2 (08:33→18:00)
[2018-11-21] MEDS: CHOLECALCIFEROL (D3) 1000 UNIT TABLET PO SCH (08:33)
[2018-11-21] MEDS: ASPIRIN 81MG EC TABLET PO SCH (08:33)
[2018-11-21] MEDS: FERROUS SULFATE 325MG TABLET PO SCH (08:33)
[2018-11-21] MEDS: CARVEDILOL 6.25 MG TABLET PO SCH ×2 (08:34→21:14)
[2018-11-21] MEDS: FUROSEMIDE 40MG/4ML VIAL IVP SCH (08:34)
[2018-11-21] MEDS: ENOXAPARIN 60MG/0.6ML SYR SUBCUT SCH ×2 (08:34→19:40)
[2018-11-21] MEDS: TRIAMCINOLONE ACETONIDE 0.1 % OINT 15GM TOP SCH ×2 (08:35→18:01)
[2018-11-21] MEDS ORDERED: LIDOCAINE HCL 1% 20ML VIAL (Pyxis) INJ ONE (09:55)
[2018-11-21] MEDS ORDERED: SODIUM BICARBONATE 4% (2.4MEQ) 5ML VIAL IV ONE (09:55)
[2018-11-21 13:40] LABS: PLATELET ESTIMATE NORMAL
[2018-11-21] MEDS: WARFARIN SODIUM 3MG TABLET PO SCH (18:00)
[2018-11-22] VITALS (12 sets, daily range): BP systolic 92–109; BP diastolic 51–70
[2018-11-22] MEDS: IPRATROPIUM/ALBUTEROL 0.5-3(2.5)MG/3ML NEB INH PRN ×2 (00:34→04:51)
[2018-11-22] MEDS: DILTIAZEM HCL 60MG TABLET PO SCH ×3 (05:10→17:48)
[2018-11-22 07:43] LABS: INR 1.2
[2018-11-22 07:48] LABS: HEMATOCRIT. 30.2 % (36.0-48.0); HEMOGLOBIN. 9.8 g/dL (12.0-16.0); MEAN CORPUSCULAR HEMOGLOBIN 32.2 pg (28.0-32.0); MEAN CORPUSCULAR VOLUME 99.2 fL (81.0-99.0); MEAN PLATELET VOLUME 6.5 fl (7.4-10.4); PLATELET 305 x1000/uL (130-400); RED BLOOD CELL COUNT 3.04 mill/uL (4.2-5.4); RED CELL DISTRIBUTION WIDTH 15.7 % (11.6-14.6)
[2018-11-22 07:57] LABS: CHLORIDE 98 mEq/L (98-107)
[2018-11-22] MEDS: ASPIRIN 81MG EC TABLET PO SCH (09:00)
[2018-11-22] MEDS: ENOXAPARIN 60MG/0.6ML SYR SUBCUT SCH (09:00)
[2018-11-22] MEDS ORDERED: FAMOTIDINE 20MG TABLET PO SCH (09:00)
[2018-11-22] MEDS: BACLOFEN 10MG TABLET PO SCH ×2 (09:16→17:48)
[2018-11-22] MEDS: FUROSEMIDE 40MG/4ML VIAL IVP SCH (09:16)
[2018-11-22] MEDS: HYDROXYCHLOROQUINE SULFATE 200MG TABLET PO SCH ×2 (09:16→21:07)
[2018-11-22] MEDS: GUAIFENESIN 600MG ER TABLET PO SCH ×2 (09:17→21:07)
[2018-11-22] MEDS: SULFAMETHOXAZOLE/TRIMETHOPRIM 800/160MG TABLET PO SCH ×2 (09:17→21:07)
[2018-11-22] MEDS: LACTOBACILLUS GG CAPSULE PO SCH (09:17)
[2018-11-22] MEDS: FERROUS SULFATE 325MG TABLET PO SCH (09:17)
[2018-11-22] MEDS: POTASSIUM CHLORIDE 20MEQ TABLET SR PO SCH (09:17)
[2018-11-22] MEDS: CARVEDILOL 6.25 MG TABLET PO SCH ×2 (09:17→21:07)
[2018-11-22] MEDS: CHOLECALCIFEROL (D3) 1000 UNIT TABLET PO SCH (09:17)
[2018-11-22] MEDS: TRIAMCINOLONE ACETONIDE 0.1 % OINT 15GM TOP SCH ×2 (09:18→17:48)
[2018-11-22 10:38] LABS: PLATELET ESTIMATE NORMAL
[2018-11-22] MEDS: WARFARIN SODIUM 3MG TABLET PO SCH (17:48)
== END 2018-11-22 21:16 | DRG 682 ==
LOC: ER 14:08 → 3WST 21:55 → EDBEDREQTM 21:57 → EDBEDREQSVC 21:57 → EDBEDREQ 21:57 → CANRESERV 22:31 → ENRESERV 22:31 → EDBEDREQSVC 23:05 → EDBEDREQTM 23:05 → ENRESERV 23:11
PROVIDERS: ADMIT Internal Medicine; ATTEND Internal Medicine
PROC: 5A09457 Assistance with Respiratory Ventilation, 24-96 Consecutive Hours, Continuous Positive Airway Pressure (ICD-10-PCS; principal; 2018-11-15)
DX: N17.0 Acute kidney failure with tubular necrosis (principal); I50.33 Acute on chronic diastolic (congestive) heart failure; J96.00 Acute respiratory failure, unspecified whether with hypoxia or hypercapnia; I13.0 Hypertensive heart and chronic kidney disease with heart failure and stage 1 through stage 4 chronic kidney disease, or unspecified chronic kidney disease; N39.0 Urinary tract infection, site not specified; D68.59 Other primary thrombophilia; E87.4 Mixed disorder of acid-base balance; J91.8 Pleural effusion in other conditions classified elsewhere; N18.9 Chronic kidney disease, unspecified; I25.10 Atherosclerotic heart disease of native coronary artery without angina pectoris; E87.5 Hyperkalemia; M32.9 Systemic lupus erythematosus, unspecified; D64.9 Anemia, unspecified; E88.09 Other disorders of plasma-protein metabolism, not elsewhere classified; N26.1 Atrophy of kidney (terminal); E03.9 Hypothyroidism, unspecified; E87.6 Hypokalemia; I48.2 Chronic atrial fibrillation; Z79.01 Long term (current) use of anticoagulants; Z95.2 Presence of prosthetic heart valve; Z87.01 Personal history of pneumonia (recurrent); Z95.0 Presence of cardiac pacemaker; Z88.1 Allergy status to other antibiotic agents; Z79.899 Other long term (current) drug therapy
CPT/HCPCS: 36415; 36600; 71045; 76604; 80048; 80061; 82375; 82805; 82962; 83605; 83880; 84132; 84145; 84439; 84443; 84484; 93005; 94640; 94660; 96365; 96366; 96375; 97116; 97162; 99291; C1893; J0696; J1160; J1644; J1650; J1815; J1940; J3490; J7030; J7050; J7060; J7620; A4315

== ENCOUNTER 2019-03-30 18:01 | Inpatient (IN) | payer MEDICARE, MEDICAID ==
[~2019-03-30] VITALS: Ht 157.5 cm; Wt 52.2 kg
[~2019-03-30 18:01] MED LIST changes: -DILT180C3 PO; +DILT60TA3 PO; -FLEC50TA2 PO; +HYDR-459 MT; -HYDROXINE PO; +POTA20TA82 MT; -WARF2.5T47 PO; +WARF3TAB58 PO
[2019-03-30 19:59] LABS: CHLORIDE 114 mEq/L (98-107)
[2019-03-30 20:05] LABS: BG BASE EXCESS -3.3 mmol/L (-2.0-2.0); BG CARBOXYHEMOGLOBIN 0.5 % (0.5-1.5); BG DEOXYHEMOGLOBIN 8.3 % (0.0-5.0); BG FRACTION INSPIRED OXYGEN 36; BG HCO3 ACT 22.5 mmol/L (22.0-26.0); BG METHEMOGLOBIN 0.4 % (0.0-1.5); BG OXYGEN SATURATION 91.6 % (92.0-98.5); BG OXYHEMOGLOBIN 90.8 % (94.0-97.0); BG PCO2 43.5 mmHg (35.0-45.0); BG PH 7.332 (7.350-7.450); BG PO2 72.2 mmHg (75.0-100.0); BG SAMPLE SITE RIGHT BRACHIAL; BG TOTAL HEMOGLOBIN 11.4 g/dL (12.0-18.0); BG VENT MODE NASAL CANNULA
[2019-03-30 20:27] LABS: HEMATOCRIT. 33.8 % (36.0-48.0); MEAN CORPUSCULAR HEMOGLOBIN 31.5 pg (28.0-32.0); MEAN CORPUSCULAR VOLUME 96.9 fL (81.0-99.0); MEAN PLATELET VOLUME 6.4 fl (7.4-10.4); PLATELET 245 x1000/uL (130-400); RED BLOOD CELL COUNT 3.49 mill/uL (4.2-5.4); RED CELL DISTRIBUTION WIDTH 16.3 % (11.6-14.6)
[2019-03-30 20:38] LABS: PROTHROMBIN TIME 48.7 sec (9.6-11.0)
[2019-03-30 20:59] LABS: INR 5.1
[2019-03-30] MEDS ORDERED: FUROSEMIDE 40MG/4ML VIAL IVP ONE (21:00)
[2019-03-30 21:37] LABS: PLATELET ESTIMATE NORMAL
[2019-03-30] MEDS ORDERED: ONDANSETRON HCL 4MG/2ML INJ IV PRN (23:45)
[2019-03-30] MEDS ORDERED: CLONIDINE 0.1MG TABLET PO PRN (23:45)
[2019-03-30] MEDS ORDERED: DOCUSATE SODIUM 100MG CAPSULE PO PRN (23:45)
[2019-03-30] MEDS ORDERED: IPRATROPIUM/ALBUTEROL 0.5-3(2.5)MG/3ML NEB NEB PRN (23:45)
[2019-03-31 04:29] LABS: HEMATOCRIT. 34.9 % (36.0-48.0); HEMOGLOBIN. 11.2 g/dL (12.0-16.0); MEAN CORPUSCULAR HEMOGLOBIN 31.1 pg (28.0-32.0); MEAN CORPUSCULAR VOLUME 96.8 fL (81.0-99.0); MEAN PLATELET VOLUME 6.5 fl (7.4-10.4); PLATELET 260 x1000/uL (130-400); RED CELL DISTRIBUTION WIDTH 16.6 % (11.6-14.6)
[2019-03-31 04:41] LABS: CREATINE KINASE 124 IU/L (26-192); CREATINE KINASE MB FRACTION 4.4 ng/mL (0.5-3.6)
[2019-03-31 05:08] LABS: PLATELET ESTIMATE NORMAL
[2019-03-31] MEDS ORDERED: HEPARIN 5000 UNITS/ML VIAL SUBCUT SCH (09:00)
[2019-03-31 10:30] VITALS: BP 121/68
[2019-03-31 12:54] VITALS: BP 123/97
[2019-03-31] MEDS ORDERED: PHYTONADIONE 10 MG in DEXTROSE 5% WATER 49 ML IV NR (13:00)
[2019-03-31] MEDS: SULFAMETHOXAZOLE/TRIMETHOPRIM 800/160MG TABLET PO SCH (13:07)
[2019-03-31] MEDS: DILTIAZEM HCL 60MG TABLET PO SCH ×2 (13:07→17:09)
[2019-03-31] MEDS: FUROSEMIDE 40MG/4ML VIAL IV SCH ×2 (13:07→17:09)
[2019-03-31] MEDS: HYDROXYZINE 25MG TABLET PO PRN (13:08)
[2019-03-31 15:29] LABS: CREATINE KINASE MB FRACTION 3.6 ng/mL (0.5-3.6)
[2019-03-31 15:31] LABS: CREATINE KINASE 109 IU/L (26-192)
[2019-03-31 16:08] VITALS: BP 106/65
[2019-03-31] MEDS ORDERED: BISACODYL 5MG TABLET PO NR (16:45)
[2019-03-31] MEDS ORDERED: BISACODYL 5MG TABLET PO PRN (16:45)
[2019-03-31] MEDS ORDERED: IPRATROPIUM/ALBUTEROL 0.5-3(2.5)MG/3ML NEB NEB PRN (17:00)
[2019-03-31] MEDS: HYDROXYCHLOROQUINE SULFATE 200MG TABLET PO SCH (17:07)
[2019-03-31] MEDS: CARVEDILOL 6.25 MG TABLET PO SCH (17:08)
[2019-03-31] MEDS: BACLOFEN 10MG TABLET PO SCH (17:08)
[2019-03-31] MEDS: DOCUSATE SODIUM 250MG CAPSULE PO SCH (17:17)
[2019-03-31 17:48] LABS: T4 FREE 0.8 ng/dL (0.76-1.46)
[2019-03-31 20:00] VITALS: BP 95/61
[2019-03-31] MEDS: FLUTICASONE PROPIONATE 50MCG/SPRAY BOTTLE BOTHNSTRLS SCH (21:39)
[2019-03-31] MEDS: TRIAMCINOLONE ACETONIDE 0.1 % OINT 15GM TOP SCH (21:41)
[2019-03-31] MEDS: IPRATROPIUM/ALBUTEROL 0.5-3(2.5)MG/3ML NEB HHN SCH (22:35)
[2019-04-01] VITALS: BP 94/62
[2019-04-01] MEDS: ACETYLCYSTEINE 100MG/ML 10% VIAL 4ML INH SCH ×4 (01:47→20:28)
[2019-04-01] MEDS: IPRATROPIUM/ALBUTEROL 0.5-3(2.5)MG/3ML NEB HHN SCH ×6 (01:48→20:28)
[2019-04-01 04:00] VITALS: BP 105/68
[2019-04-01] MEDS: DILTIAZEM HCL 60MG TABLET PO SCH ×5 (05:26→23:58)
[2019-04-01] MEDS: FUROSEMIDE 40MG/4ML VIAL IV SCH ×2 (07:04→17:22)
[2019-04-01 08:20] LABS: HEMATOCRIT. 36.4 % (36.0-48.0); HEMOGLOBIN. 11.4 g/dL (12.0-16.0); INR 1.5; MEAN CORPUSCULAR HEMOGLOBIN 30.6 pg (28.0-32.0); MEAN CORPUSCULAR VOLUME 97.8 fL (81.0-99.0); MEAN PLATELET VOLUME 6.5 fl (7.4-10.4); PLATELET 227 x1000/uL (130-400); PROTHROMBIN TIME 14.7 sec (9.6-11.0); RED BLOOD CELL COUNT 3.73 mill/uL (4.2-5.4); RED CELL DISTRIBUTION WIDTH 16.1 % (11.6-14.6)
[2019-04-01 08:34] VITALS: BP 114/72
[2019-04-01] MEDS ORDERED: AMLODIPINE 5MG TABLET PO SCH (09:00)
[2019-04-01] MEDS ORDERED: HYDROXYCHLOROQUINE SULFATE 200MG TABLET PO SCH (09:00)
[2019-04-01] MEDS: FERROUS SULFATE 325MG TABLET PO SCH (09:25)
[2019-04-01] MEDS: BACLOFEN 10MG TABLET PO SCH ×2 (09:25→17:19)
[2019-04-01] MEDS: DOCUSATE SODIUM 250MG CAPSULE PO SCH (09:25)
[2019-04-01] MEDS: CHOLECALCIFEROL (D3) 1000 UNIT TABLET PO SCH (09:25)
[2019-04-01] MEDS: SULFAMETHOXAZOLE/TRIMETHOPRIM 800/160MG TABLET PO SCH (09:26)
[2019-04-01] MEDS: CARVEDILOL 6.25 MG TABLET PO SCH ×2 (09:38→17:22)
[2019-04-01] MEDS: TRIAMCINOLONE ACETONIDE 0.1 % OINT 15GM TOP SCH ×2 (09:47→18:07)
[2019-04-01] MEDS ORDERED: PANTOT AC/MIN OIL/PET HY-PHL OINT (AQUAPHOR) TOP PRN (11:00)
[2019-04-01] MEDS: FLUTICASONE PROPIONATE 50MCG/SPRAY BOTTLE BOTHNSTRLS SCH ×2 (11:05→22:18)
[2019-04-01 12:35] VITALS: BP 113/71
[2019-04-01] MEDS ORDERED: LOPERAMIDE HCL 2MG CAPSULE PO NR (14:45)
[2019-04-01 16:09] VITALS: BP 103/63
[2019-04-01 16:37] LABS: PLATELET ESTIMATE NORMAL
[2019-04-01] MEDS: HYDROXYCHLOROQUINE SULFATE 200MG TABLET PO SCH (17:19)
[2019-04-01 20:00] VITALS: BP 102/64
[2019-04-01] MEDS: HYDROXYZINE 25MG TABLET PO PRN (22:17)
[2019-04-02] VITALS: BP 96/61
[2019-04-02] MEDS: IPRATROPIUM/ALBUTEROL 0.5-3(2.5)MG/3ML NEB HHN SCH ×6 (00:30→20:41)
[2019-04-02 04:00] VITALS: BP 133/73
[2019-04-02] MEDS: ACETYLCYSTEINE 100MG/ML 10% VIAL 4ML INH SCH (04:24)
[2019-04-02] MEDS: DILTIAZEM HCL 60MG TABLET PO SCH ×3 (05:26→18:14)
[2019-04-02 06:57] LABS: INR 1.2; PROTHROMBIN TIME 12.6 sec (9.6-11.0)
[2019-04-02 08:00] VITALS: BP 102/69
[2019-04-02] MEDS ORDERED: SODIUM BICARBONATE 4% (2.4MEQ) 5ML VIAL IV ONE (09:13)
[2019-04-02 12:00] VITALS: BP 104/69
[2019-04-02] MEDS: FUROSEMIDE 40MG/4ML VIAL IV SCH ×2 (12:02→18:14)
[2019-04-02] MEDS: CARVEDILOL 6.25 MG TABLET PO SCH ×2 (12:02→18:14)
[2019-04-02] MEDS: FERROUS SULFATE 325MG TABLET PO SCH (12:03)
[2019-04-02] MEDS: SULFAMETHOXAZOLE/TRIMETHOPRIM 800/160MG TABLET PO SCH (12:03)
[2019-04-02] MEDS: BACLOFEN 10MG TABLET PO SCH ×2 (12:03→18:14)
[2019-04-02] MEDS: CHOLECALCIFEROL (D3) 1000 UNIT TABLET PO SCH (12:03)
[2019-04-02 16:00] VITALS: BP 113/59
[2019-04-02 17:39] LABS: HEMATOCRIT. 35.9 % (36.0-48.0); HEMOGLOBIN. 11.4 g/dL (12.0-16.0); MEAN CORPUSCULAR HEMOGLOBIN 30.9 pg (28.0-32.0); MEAN CORPUSCULAR VOLUME 97.5 fL (81.0-99.0); MEAN PLATELET VOLUME 6.6 fl (7.4-10.4); PLATELET 214 x1000/uL (130-400); RED BLOOD CELL COUNT 3.68 mill/uL (4.2-5.4); RED CELL DISTRIBUTION WIDTH 16.3 % (11.6-14.6)
[2019-04-02] MEDS ORDERED: WARFARIN SODIUM 5MG TABLET PO NR (18:00)
[2019-04-02 18:02] LABS: PLATELET ESTIMATE NORMAL
[2019-04-02] MEDS: HYDROXYCHLOROQUINE SULFATE 200MG TABLET PO SCH (18:13)
[2019-04-02] MEDS: FLUTICASONE PROPIONATE 50MCG/SPRAY BOTTLE BOTHNSTRLS SCH ×2 (18:15→21:07)
[2019-04-02] MEDS: TRIAMCINOLONE ACETONIDE 0.1 % OINT 15GM TOP SCH ×2 (18:19→18:20)
[2019-04-02 20:00] VITALS: BP 97/54
[2019-04-03] VITALS (8 sets, daily range): BP systolic 91–129; BP diastolic 56–82
[2019-04-03] MEDS: IPRATROPIUM/ALBUTEROL 0.5-3(2.5)MG/3ML NEB HHN SCH ×7 (00:25→21:51)
[2019-04-03] MEDS: ACETYLCYSTEINE 100MG/ML 10% VIAL 4ML INH SCH ×4 (00:26→21:51)
[2019-04-03] MEDS: HYDROXYZINE 25MG TABLET PO PRN (02:17)
[2019-04-03] MEDS: DILTIAZEM HCL 60MG TABLET PO SCH ×4 (02:17→19:23)
[2019-04-03] MEDS: FUROSEMIDE 40MG/4ML VIAL IV SCH ×2 (06:56→19:38)
[2019-04-03] MEDS: FLUTICASONE PROPIONATE 50MCG/SPRAY BOTTLE BOTHNSTRLS SCH ×2 (09:00→22:28)
[2019-04-03] MEDS: TRIAMCINOLONE ACETONIDE 0.1 % OINT 15GM TOP SCH ×2 (09:00→17:00)
[2019-04-03] MEDS: CARVEDILOL 6.25 MG TABLET PO SCH ×2 (09:00→10:15)
[2019-04-03] MEDS: SULFAMETHOXAZOLE/TRIMETHOPRIM 800/160MG TABLET PO SCH (10:03)
[2019-04-03] MEDS: FERROUS SULFATE 325MG TABLET PO SCH (10:04)
[2019-04-03] MEDS: BACLOFEN 10MG TABLET PO SCH ×2 (10:06→19:23)
[2019-04-03] MEDS: CHOLECALCIFEROL (D3) 1000 UNIT TABLET PO SCH (10:15)
[2019-04-03 10:43] LABS: INR 1.2; PROTHROMBIN TIME 12.2 sec (9.6-11.0)
[2019-04-03 16:50] LABS: BG BASE EXCESS 3.3 mmol/L (-2.0-2.0); BG CARBOXYHEMOGLOBIN 0.8 % (0.5-1.5); BG DEOXYHEMOGLOBIN 13.5 % (0.0-5.0); BG FRACTION INSPIRED OXYGEN 21; BG HCO3 ACT 28.6 mmol/L (22.0-26.0); BG METHEMOGLOBIN 0.2 % (0.0-1.5); BG OXYGEN SATURATION 86.4 % (92.0-98.5); BG OXYHEMOGLOBIN 85.5 % (94.0-97.0); BG PCO2 46.4 mmHg (35.0-45.0); BG PH 7.407 (7.350-7.450); BG PO2 53.6 mmHg (75.0-100.0); BG SAMPLE SITE RIGHT RADIAL; BG VENT MODE ROOM AIR
[2019-04-03] MEDS ORDERED: WARFARIN SODIUM 3MG TABLET PO SCH (18:00)
[2019-04-03] MEDS: ACETAMINOPHEN 325MG TABLET PO PRN (19:23)
[2019-04-03] MEDS: HYDROXYCHLOROQUINE SULFATE 200MG TABLET PO SCH (19:25)
[2019-04-04] VITALS (7 sets, daily range): BP systolic 97–120; BP diastolic 60–71
[2019-04-04] LABS: CLARITY URINE CLEAR (CLEAR); COLOR URINE YELLOW (YELLOW); KETONES URINE NEGATIVE (NEGATIVE); LEUKOCYTE ESTERASE URINE 1+ (NEGATIVE); NITRITE URINE NEGATIVE (NEGATIVE); OCCULT BLOOD URINE TRACE (NEGATIVE); PROTEIN URINE NEGATIVE (NEGATIVE); SPECIFIC GRAVITY URINE 1.007 (1.005-1.030); UROBILINOGEN URINE 0.2 E.U./dL (0.2-1.0)
[2019-04-04] MEDS: IPRATROPIUM/ALBUTEROL 0.5-3(2.5)MG/3ML NEB HHN SCH ×5 (01:20→16:52)
[2019-04-04] MEDS: DILTIAZEM HCL 60MG TABLET PO SCH ×4 (01:34→17:39)
[2019-04-04] MEDS: ACETAMINOPHEN 325MG TABLET PO PRN (01:35)
[2019-04-04] MEDS: FUROSEMIDE 40MG/4ML VIAL IV SCH ×3 (06:35→17:40)
[2019-04-04 06:53] LABS: INR 1.4; PROTHROMBIN TIME 13.9 sec (9.6-11.0)
[2019-04-04 06:59] LABS: HEMATOCRIT. 33.3 % (36.0-48.0); HEMOGLOBIN. 10.8 g/dL (12.0-16.0); MEAN CORPUSCULAR HEMOGLOBIN 31.4 pg (28.0-32.0); MEAN CORPUSCULAR VOLUME 96.6 fL (81.0-99.0); PLATELET 204 x1000/uL (130-400); RED BLOOD CELL COUNT 3.44 mill/uL (4.2-5.4); RED CELL DISTRIBUTION WIDTH 15.9 % (11.6-14.6)
[2019-04-04] MEDS: TRIAMCINOLONE ACETONIDE 0.1 % OINT 15GM TOP SCH ×2 (08:35→17:00)
[2019-04-04] MEDS: CARVEDILOL 6.25 MG TABLET PO SCH ×2 (08:36→17:39)
[2019-04-04] MEDS: SULFAMETHOXAZOLE/TRIMETHOPRIM 800/160MG TABLET PO SCH (08:36)
[2019-04-04] MEDS: CHOLECALCIFEROL (D3) 1000 UNIT TABLET PO SCH (08:36)
[2019-04-04] MEDS: FLUTICASONE PROPIONATE 50MCG/SPRAY BOTTLE BOTHNSTRLS SCH (08:37)
[2019-04-04] MEDS: BACLOFEN 10MG TABLET PO SCH ×2 (08:37→17:39)
[2019-04-04] MEDS: FERROUS SULFATE 325MG TABLET PO SCH (08:38)
[2019-04-04] MEDS: HYDROCODONE/ACETAMINOPHEN 5/325MG TABLET PO PRN ×2 (08:39→14:20)
[2019-04-04] MEDS: ACETYLCYSTEINE 100MG/ML 10% VIAL 4ML INH SCH ×2 (09:23→16:52)
[2019-04-04] MEDS ORDERED: MUC20 INH (11:12)
[2019-04-04 14:16] LABS: PLATELET ESTIMATE NORMAL
[2019-04-04] MEDS ORDERED: IPRA3AMP9 HHN (14:39)
[2019-04-04] MEDS: HYDROXYCHLOROQUINE SULFATE 200MG TABLET PO SCH (17:45)
[2019-04-04] MEDS ORDERED: WARFARIN SODIUM 3MG TABLET PO SCH (18:00)
== END 2019-04-04 20:05 | disposition home or self-care (01) | DRG 291 ==
LOC: ER 18:01 → 6WST 23:15 → EDBEDREQ 23:22 → EDBEDREQTM 23:22 → ENRESERV 03-31 09:45
PROVIDERS: ADMIT Internal Medicine; ATTEND Internal Medicine
PROC: 0W9B3ZZ Drainage of Left Pleural Cavity, Percutaneous Approach (ICD-10-PCS; principal; 2019-04-02)
DX: I13.0 Hypertensive heart and chronic kidney disease with heart failure and stage 1 through stage 4 chronic kidney disease, or unspecified chronic kidney disease (principal); J96.01 Acute respiratory failure with hypoxia; I50.43 Acute on chronic combined systolic (congestive) and diastolic (congestive) heart failure; N17.9 Acute kidney failure, unspecified; S72.451A Displaced supracondylar fracture without intracondylar extension of lower end of right femur, initial encounter for closed fracture; D68.9 Coagulation defect, unspecified; I48.92 Unspecified atrial flutter; R64 Cachexia; J91.8 Pleural effusion in other conditions classified elsewhere; E87.6 Hypokalemia; K59.00 Constipation, unspecified; I49.5 Sick sinus syndrome; M32.9 Systemic lupus erythematosus, unspecified; J44.9 Chronic obstructive pulmonary disease, unspecified; L20.9 Atopic dermatitis, unspecified; N18.9 Chronic kidney disease, unspecified; I48.91 Unspecified atrial fibrillation; M47.817 Spondylosis without myelopathy or radiculopathy, lumbosacral region; M47.892 Other spondylosis, cervical region; Z96.641 Presence of right artificial hip joint; I08.1 Rheumatic disorders of both mitral and tricuspid valves; M81.0 Age-related osteoporosis without current pathological fracture; M24.561 Contracture, right knee; J00 Acute nasopharyngitis [common cold]; E03.9 Hypothyroidism, unspecified; X58.XXXA Exposure to other specified factors, initial encounter; D64.9 Anemia, unspecified; B18.2 Chronic viral hepatitis C; Z95.0 Presence of cardiac pacemaker; Z86.74 Personal history of sudden cardiac arrest; Z79.01 Long term (current) use of anticoagulants; Z95.2 Presence of prosthetic heart valve; Z87.891 Personal history of nicotine dependence; Z88.8 Allergy status to other drugs, medicaments and biological substances; Z79.899 Other long term (current) drug therapy; Z87.01 Personal history of pneumonia (recurrent); Z68.21 Body mass index [BMI] 21.0-21.9, adult; Y93.89 Activity, other specified; Y92.89 Other specified places as the place of occurrence of the external cause; Y99.8 Other external cause status
CPT/HCPCS: 32555; 36415; 36600; 71045; 80048; 80053; 80061; 81003; 82375; 82550; 82553; 82570; 82805; 83605; 83735; 83880; 84156; 84439; 84443; 84481; 84484; 85025; 87804; 93005; 93306; 93970; 94640; 96374; 99291; J1940; J2405; J3430; J3490; J7040; J7060; J7608; J7620

== ENCOUNTER 2019-04-29 09:05 | Inpatient (IN) | payer MEDICARE, MEDICAID ==
[~2019-04-29] VITALS: Ht 157.5 cm; Wt 50.3 kg
[~2019-04-29 09:05] MED LIST changes: +IPRA3AMP9 HHN; -LIDO40SO4 TP; +MUC20 INH; -POTA20TA82 MT; -WARF3TAB58 PO
[2019-04-29] MEDS ORDERED: ALBUTEROL (0.083%) 2.5MG/3ML NEB HHN STA (09:50)
[2019-04-29] MEDS ORDERED: IPRATROPIUM BROMIDE (0.02%) 0.5MG/2.5ML NEB HHN STA (09:50)
[2019-04-29] MEDS ORDERED: METHYLPREDNISOLONE SOD SUCC 125 MG/2 ML VIAL IV STA (09:50)
[2019-04-29 11:15] LABS: HEMATOCRIT. 38.7 % (36.0-48.0); HEMOGLOBIN. 12.2 g/dL (12.0-16.0); MEAN CORPUSCULAR VOLUME 98.4 fL (81.0-99.0); PLATELET 229 x1000/uL (130-400); RED BLOOD CELL COUNT 3.93 mill/uL (4.2-5.4); RED CELL DISTRIBUTION WIDTH 15.7 % (11.6-14.6)
[2019-04-29 11:21] LABS: CHLORIDE 114 mEq/L (98-107)
[2019-04-29] MEDS ORDERED: HYDROCODONE/APAP 7.5/325MG 1 TAB TABLET PO PRN (11:30)
[2019-04-29] MEDS ORDERED: BACLOFEN 10MG TABLET PO SCH (11:30)
[2019-04-29] MEDS ORDERED: INSULIN REGULAR (HUMULIN R) 300UNITS/3ML IV ONE (11:30)
[2019-04-29] MEDS ORDERED: FUROSEMIDE 40MG TABLET PO SCH (11:30)
[2019-04-29] MEDS ORDERED: AMLODIPINE 5MG TABLET PO SCH (11:30)
[2019-04-29] MEDS: DILTIAZEM HCL 60MG TABLET PO SCH (11:30)
[2019-04-29] MEDS ORDERED: SODIUM BICARBONATE 8.4% 1 MEQ/ML 50ML SYR IV ONE (11:30)
[2019-04-29] MEDS ORDERED: CHOLECALCIFEROL (D3) 1000 UNIT TABLET PO SCH (11:30)
[2019-04-29] MEDS ORDERED: DEXTROSE 50% WATER 50ML SYRINGE IV ONE (11:30)
[2019-04-29] MEDS ORDERED: HYDROXYZINE 25MG TABLET PO PRN (11:30)
[2019-04-29] MEDS: CARVEDILOL 6.25 MG TABLET PO SCH (11:30)
[2019-04-29] MEDS ORDERED: FERROUS SULFATE 325MG TABLET PO SCH (11:30)
[2019-04-29 11:52] LABS: BG BASE EXCESS -4.5 mmol/L (-2.0-2.0); BG CARBOXYHEMOGLOBIN 0.2 % (0.5-1.5); BG DEOXYHEMOGLOBIN 7.3 % (0.0-5.0); BG FRACTION INSPIRED OXYGEN 44; BG HCO3 ACT 23.6 mmol/L (22.0-26.0); BG OXYGEN SATURATION 92.7 % (92.0-98.5); BG OXYHEMOGLOBIN 92.5 % (94.0-97.0); BG PCO2 57.3 mmHg (35.0-45.0); BG PH 7.233 (7.350-7.450); BG PO2 77.8 mmHg (75.0-100.0); BG SAMPLE SITE RIGHT RADIAL; BG TOTAL HEMOGLOBIN 12.3 g/dL (12.0-18.0)
[2019-04-29] MEDS ORDERED: ONDANSETRON HCL 4MG/2ML INJ IV PRN (12:30)
[2019-04-29 12:40] LABS: PLATELET ESTIMATE NORMAL
[2019-04-29] MEDS: HYDROCORTISONE SOD SUCCINATE 100 MG/2 ML VIAL IV SCH (14:00)
[2019-04-29 17:11] LABS: PROTHROMBIN TIME 45.6 sec (9.6-11.0)
[2019-04-29 17:15] LABS: INR 4.8
[2019-04-29] MEDS ORDERED: BACLOFEN 10MG TABLET PO NR (17:15)
[2019-04-29] MEDS ORDERED: DILTIAZEM HCL 60MG TABLET PO NR (18:05)
[2019-04-29] MEDS ORDERED: HYDROXYCHLOROQUINE SULFATE 200MG TABLET PO NR (18:08)
[2019-04-29] MEDS ORDERED: HEPARIN 5000 UNITS/ML VIAL SUBCUT SCH (21:00)
[2019-04-30] VITALS (7 sets, daily range): BP systolic 118–136; BP diastolic 75–90
[2019-04-30] MEDS ORDERED: DILTIAZEM HCL 60MG TABLET PO NR (00:30)
[2019-04-30] MEDS: IPRATROPIUM/ALBUTEROL 0.5-3(2.5)MG/3ML NEB HHN SCH ×4 (01:11→22:25)
[2019-04-30] MEDS: ACETAMINOPHEN 500MG TABLET PO PRN ×3 (01:13→23:48)
[2019-04-30] MEDS ORDERED: IPRATROPIUM/ALBUTEROL 0.5-3(2.5)MG/3ML NEB HHN NR (01:45)
[2019-04-30 05:38] LABS: HEMATOCRIT. 36.7 % (36.0-48.0); MEAN CORPUSCULAR HEMOGLOBIN 31.7 pg (28.0-32.0); MEAN CORPUSCULAR VOLUME 97.2 fL (81.0-99.0); MEAN PLATELET VOLUME 6.7 fl (7.4-10.4); PLATELET 211 x1000/uL (130-400); RED BLOOD CELL COUNT 3.78 mill/uL (4.2-5.4); RED CELL DISTRIBUTION WIDTH 15.8 % (11.6-14.6)
[2019-04-30 05:45] LABS: CHLORIDE 112 mEq/L (98-107)
[2019-04-30 05:54] LABS: LDL CHOLESTEROL 86 mg/dL (5-100)
[2019-04-30 05:56] LABS: HDL CHOLESTEROL 50 mg/dL (40-59)
[2019-04-30] MEDS ORDERED: CARVEDILOL 6.25 MG TABLET PO NR (06:00)
[2019-04-30] MEDS: CARVEDILOL 6.25 MG TABLET PO SCH ×4 (07:21→20:51)
[2019-04-30] MEDS: DILTIAZEM HCL 60MG TABLET PO SCH ×4 (07:22→23:48)
[2019-04-30] MEDS: HYDROCORTISONE SOD SUCCINATE 100 MG/2 ML VIAL IV SCH ×4 (09:23→22:42)
[2019-04-30] MEDS: FERROUS SULFATE 325MG TABLET PO SCH (10:11)
[2019-04-30] MEDS: MYCOPHENOLATE MOFETIL 250MG CAPSULE PO SCH ×2 (10:11→22:42)
[2019-04-30] MEDS: BACLOFEN 10MG TABLET PO SCH ×2 (10:11→17:59)
[2019-04-30 10:31] LABS: PLATELET ESTIMATE NORMAL
[2019-04-30] MEDS: AMLODIPINE 5MG TABLET PO SCH (11:27)
[2019-04-30] MEDS: CHOLECALCIFEROL (D3) 1000 UNIT TABLET PO SCH (11:28)
[2019-04-30] MEDS: FUROSEMIDE 40MG TABLET PO SCH (11:28)
[2019-04-30] MEDS ORDERED: INSULIN REGULAR (HUMULIN R) UD 100 UNITS/ML SYR IV SCH ×2 (12:00→18:30)
[2019-04-30] MEDS ORDERED: SODIUM POLYSTYRENE SULFONATE 15 G/60 ML BOT PO SCH (12:00)
[2019-04-30] MEDS ORDERED: DEXTROSE 50% WATER 50ML SYRINGE IV SCH (12:00)
[2019-04-30] MEDS ORDERED: SODIUM BICARBONATE 8.4% 1 MEQ/ML 50ML SYR IV NR (17:16)
[2019-04-30] MEDS ORDERED: DEXTROSE 50% WATER 50ML SYRINGE IV NR (17:16)
[2019-04-30 17:33] LABS: CLARITY URINE CLOUDY (CLEAR); COLOR URINE YELLOW (YELLOW); KETONES URINE NEGATIVE (NEGATIVE); LEUKOCYTE ESTERASE URINE TRACE (NEGATIVE); NITRITE URINE NEGATIVE (NEGATIVE); OCCULT BLOOD URINE NEGATIVE (NEGATIVE); PROTEIN URINE NEGATIVE (NEGATIVE); SPECIFIC GRAVITY URINE 1.008 (1.005-1.030); UROBILINOGEN URINE 0.2 E.U./dL (0.2-1.0)
[2019-04-30 17:48] LABS: *COCAINE SCREEN URINE NEGATIVE (NEGATIVE); CANNABINOID URINE SCREEN NEGATIVE (NEGATIVE); METHADONE URINE SCREEN NEGATIVE (NEGATIVE); OPIATES URINE SCREEN NEGATIVE (NEGATIVE); PHENCYCLIDINE URINE SCREEN NEGATIVE (NEGATIVE)
[2019-04-30 17:50] LABS: *AMPHETAMINES SCREEN URINE NEGATIVE (NEGATIVE); *BARBITURATES SCREEN URINE NEGATIVE (NEGATIVE); *BENZODIAZEPINES SCREEN URINE NEGATIVE (NEGATIVE)
[2019-04-30] MEDS: HYDROXYCHLOROQUINE SULFATE 200MG TABLET PO SCH (17:59)
[2019-05-01] VITALS (12 sets, daily range): BP systolic 94–138; BP diastolic 62–90
[2019-05-01] MEDS: IPRATROPIUM/ALBUTEROL 0.5-3(2.5)MG/3ML NEB HHN SCH ×5 (01:11→23:38)
[2019-05-01] MEDS: HYDROCORTISONE SOD SUCCINATE 100 MG/2 ML VIAL IV SCH ×3 (06:00→21:16)
[2019-05-01] MEDS: DILTIAZEM HCL 60MG TABLET PO SCH ×4 (06:00→23:39)
[2019-05-01] MEDS: MYCOPHENOLATE MOFETIL 250MG CAPSULE PO SCH ×2 (09:20→20:39)
[2019-05-01] MEDS: FERROUS SULFATE 325MG TABLET PO SCH (09:22)
[2019-05-01] MEDS: CARVEDILOL 6.25 MG TABLET PO SCH ×2 (09:22→20:39)
[2019-05-01] MEDS: CHOLECALCIFEROL (D3) 1000 UNIT TABLET PO SCH (09:23)
[2019-05-01] MEDS: FUROSEMIDE 40MG TABLET PO SCH (09:23)
[2019-05-01] MEDS: AMLODIPINE 5MG TABLET PO SCH (09:23)
[2019-05-01] MEDS: BACLOFEN 10MG TABLET PO SCH ×2 (09:23→17:37)
[2019-05-01] MEDS: ACETAMINOPHEN 500MG TABLET PO PRN ×2 (09:27→23:40)
[2019-05-01 11:39] LABS: HEMATOCRIT 35.5 % (36.0-48.0); HEMOGLOBIN 11.4 g/dL (12.0-16.0); INR 2.2; MEAN CORPUSCULAR HEMOGLOBIN 31.5 pg (28.0-32.0); MEAN CORPUSCULAR VOLUME 98.5 fL (81.0-99.0); PLATELET 223 x1000/uL (130-400); PROTHROMBIN TIME 22.2 sec (9.6-11.0); RED BLOOD CELL COUNT 3.61 mill/uL (4.2-5.4); RED CELL DISTRIBUTION WIDTH 15.6 % (11.6-14.6)
[2019-05-01 12:21] LABS: CHLORIDE 107 mEq/L (98-107)
[2019-05-01] MEDS: HYDROXYCHLOROQUINE SULFATE 200MG TABLET PO SCH (17:37)
[2019-05-01] MEDS ORDERED: WARFARIN SODIUM 2MG TABLET PO SCH (18:00)
[2019-05-02] VITALS (11 sets, daily range): BP systolic 93–135; BP diastolic 56–76
[2019-05-02] MEDS: IPRATROPIUM/ALBUTEROL 0.5-3(2.5)MG/3ML NEB HHN SCH ×5 (03:47→21:25)
[2019-05-02] MEDS: HYDROCORTISONE SOD SUCCINATE 100 MG/2 ML VIAL IV SCH ×3 (05:23→22:29)
[2019-05-02] MEDS: DILTIAZEM HCL 60MG TABLET PO SCH ×3 (05:25→18:00)
[2019-05-02 09:10] LABS: INR 1.6; PROTHROMBIN TIME 15.6 sec (9.6-11.0)
[2019-05-02 09:24] LABS: HEMOGLOBIN. 11.3 g/dL (12.0-16.0); MEAN CORPUSCULAR HEMOGLOBIN 31.4 pg (28.0-32.0); MEAN CORPUSCULAR VOLUME 97.5 fL (81.0-99.0); MEAN PLATELET VOLUME 7.3 fl (7.4-10.4); PLATELET 204 x1000/uL (130-400); RED BLOOD CELL COUNT 3.59 mill/uL (4.2-5.4)
[2019-05-02] MEDS: CARVEDILOL 6.25 MG TABLET PO SCH ×2 (09:48→21:00)
[2019-05-02] MEDS: CHOLECALCIFEROL (D3) 1000 UNIT TABLET PO SCH (09:49)
[2019-05-02] MEDS: FUROSEMIDE 40MG TABLET PO SCH (09:50)
[2019-05-02] MEDS: MYCOPHENOLATE MOFETIL 250MG CAPSULE PO SCH ×2 (09:50→20:35)
[2019-05-02] MEDS: FERROUS SULFATE 325MG TABLET PO SCH (09:50)
[2019-05-02] MEDS: BACLOFEN 10MG TABLET PO SCH ×2 (09:51→18:00)
[2019-05-02 09:53] LABS: CHLORIDE 106 mEq/L (98-107)
[2019-05-02] MEDS ORDERED: FUROSEMIDE 20MG/2ML VIAL IVP SCH (11:00)
[2019-05-02] MEDS: ACETYLCYSTEINE 200MG/ML 20% VIAL 4ML INH PRN ×2 (11:54→21:25)
[2019-05-02 13:50] LABS: PLATELET ESTIMATE NORMAL
[2019-05-02 13:55] LABS: INR 1.5; PROTHROMBIN TIME 15.1 sec (9.6-11.0)
[2019-05-02] MEDS ORDERED: LIDOCAINE HCL 1% 20ML VIAL (Pyxis) INJ ONE (14:26)
[2019-05-02] MEDS ORDERED: SODIUM BICARBONATE 4% (2.4MEQ) 5ML VIAL IV ONE (14:26)
[2019-05-02] MEDS: HYDROXYCHLOROQUINE SULFATE 200MG TABLET PO SCH (18:00)
[2019-05-03] VITALS (12 sets, daily range): BP systolic 88–124; BP diastolic 46–76
[2019-05-03] MEDS: DILTIAZEM HCL 60MG TABLET PO SCH ×4 (00:13→17:17)
[2019-05-03] MEDS: ACETAMINOPHEN 500MG TABLET PO PRN ×2 (00:14→11:33)
[2019-05-03] MEDS: HYDROCORTISONE SOD SUCCINATE 100 MG/2 ML VIAL IV SCH ×3 (05:43→21:17)
[2019-05-03 07:04] LABS: HEMATOCRIT. 34.8 % (36.0-48.0); MEAN CORPUSCULAR HEMOGLOBIN 30.8 pg (28.0-32.0); MEAN CORPUSCULAR VOLUME 97.7 fL (81.0-99.0); MEAN PLATELET VOLUME 7.1 fl (7.4-10.4); PLATELET 217 x1000/uL (130-400); RED BLOOD CELL COUNT 3.56 mill/uL (4.2-5.4); RED CELL DISTRIBUTION WIDTH 15.9 % (11.6-14.6)
[2019-05-03 07:08] LABS: INR 1.3; PROTHROMBIN TIME 13.6 sec (9.6-11.0)
[2019-05-03 07:09] LABS: CHLORIDE 104 mEq/L (98-107)
[2019-05-03] MEDS ORDERED: MAGNESIUM 1 G PREMIX 100 ML IV NR (08:00)
[2019-05-03] MEDS: ACETYLCYSTEINE 200MG/ML 20% VIAL 4ML INH PRN ×2 (08:12→16:35)
[2019-05-03] MEDS: IPRATROPIUM/ALBUTEROL 0.5-3(2.5)MG/3ML NEB HHN SCH ×4 (08:12→21:00)
[2019-05-03 08:21] LABS: PLATELET ESTIMATE NORMAL
[2019-05-03] MEDS: CHOLECALCIFEROL (D3) 1000 UNIT TABLET PO SCH (08:28)
[2019-05-03] MEDS: MYCOPHENOLATE MOFETIL 250MG CAPSULE PO SCH ×2 (08:28→21:16)
[2019-05-03] MEDS: BACLOFEN 10MG TABLET PO SCH ×2 (08:28→17:17)
[2019-05-03] MEDS: CARVEDILOL 6.25 MG TABLET PO SCH ×2 (08:28→21:17)
[2019-05-03] MEDS: FUROSEMIDE 40MG TABLET PO SCH (08:28)
[2019-05-03] MEDS: FERROUS SULFATE 325MG TABLET PO SCH (08:28)
[2019-05-03 12:27] LABS: INR 1.3; PROTHROMBIN TIME 12.9 sec (9.6-11.0)
[2019-05-03] MEDS: HYDROXYCHLOROQUINE SULFATE 200MG TABLET PO SCH (17:15)
[2019-05-04] VITALS (12 sets, daily range): BP systolic 92–131; BP diastolic 59–75
[2019-05-04] MEDS: ACETAMINOPHEN 500MG TABLET PO PRN ×2 (00:13→23:44)
[2019-05-04] MEDS: DILTIAZEM HCL 60MG TABLET PO SCH ×5 (00:14→23:44)
[2019-05-04] MEDS: HYDROCORTISONE SOD SUCCINATE 100 MG/2 ML VIAL IV SCH ×3 (06:22→21:09)
[2019-05-04 08:23] LABS: HEMATOCRIT. 34.5 % (36.0-48.0); HEMOGLOBIN. 11.1 g/dL (12.0-16.0); MEAN CORPUSCULAR HEMOGLOBIN 31.5 pg (28.0-32.0); MEAN CORPUSCULAR VOLUME 98.3 fL (81.0-99.0); MEAN PLATELET VOLUME 7.1 fl (7.4-10.4); PLATELET 200 x1000/uL (130-400); RED BLOOD CELL COUNT 3.51 mill/uL (4.2-5.4); RED CELL DISTRIBUTION WIDTH 15.8 % (11.6-14.6)
[2019-05-04 08:48] LABS: CHLORIDE 105 mEq/L (98-107)
[2019-05-04] MEDS: BACLOFEN 10MG TABLET PO SCH ×2 (08:50→18:15)
[2019-05-04] MEDS: FERROUS SULFATE 325MG TABLET PO SCH (08:50)
[2019-05-04] MEDS: CARVEDILOL 6.25 MG TABLET PO SCH ×2 (08:51→21:09)
[2019-05-04] MEDS: MYCOPHENOLATE MOFETIL 250MG CAPSULE PO SCH ×2 (08:51→21:09)
[2019-05-04] MEDS: CHOLECALCIFEROL (D3) 1000 UNIT TABLET PO SCH (08:51)
[2019-05-04] MEDS: FUROSEMIDE 40MG TABLET PO SCH (08:51)
[2019-05-04] MEDS: IPRATROPIUM/ALBUTEROL 0.5-3(2.5)MG/3ML NEB HHN SCH ×5 (09:09→20:00)
[2019-05-04] MEDS: ACETYLCYSTEINE 200MG/ML 20% VIAL 4ML INH PRN (09:09)
[2019-05-04 13:48] LABS: PLATELET ESTIMATE NORMAL
[2019-05-04] MEDS: ENOXAPARIN 60MG/0.6ML SYR SUBCUT SCH (15:47)
[2019-05-04 16:42] LABS: INR 1.1; PROTHROMBIN TIME 11.4 sec (9.6-11.0)
[2019-05-04] MEDS ORDERED: WARFARIN SODIUM 5MG TABLET PO NR (18:00)
[2019-05-04] MEDS: HYDROXYCHLOROQUINE SULFATE 200MG TABLET PO SCH (18:15)
[2019-05-05] VITALS (10 sets, daily range): BP systolic 100–132; BP diastolic 56–85
[2019-05-05] MEDS: IPRATROPIUM/ALBUTEROL 0.5-3(2.5)MG/3ML NEB HHN SCH ×3 (04:00→08:05)
[2019-05-05] MEDS: ENOXAPARIN 60MG/0.6ML SYR SUBCUT SCH ×2 (06:38→17:54)
[2019-05-05] MEDS: HYDROCORTISONE SOD SUCCINATE 100 MG/2 ML VIAL IV SCH ×3 (06:38→21:18)
[2019-05-05] MEDS: DILTIAZEM HCL 60MG TABLET PO SCH ×3 (06:38→17:54)
[2019-05-05 06:50] LABS: HEMATOCRIT. 32.9 % (36.0-48.0); HEMOGLOBIN. 10.6 g/dL (12.0-16.0); MEAN CORPUSCULAR HEMOGLOBIN 31.2 pg (28.0-32.0); MEAN CORPUSCULAR VOLUME 96.5 fL (81.0-99.0); PLATELET 202 x1000/uL (130-400); RED BLOOD CELL COUNT 3.41 mill/uL (4.2-5.4); RED CELL DISTRIBUTION WIDTH 15.1 % (11.6-14.6)
[2019-05-05 06:55] LABS: INR 1.1; PROTHROMBIN TIME 11.1 sec (9.6-11.0)
[2019-05-05 07:20] LABS: CHLORIDE 101 mEq/L (98-107)
[2019-05-05] MEDS: FERROUS SULFATE 325MG TABLET PO SCH (09:07)
[2019-05-05] MEDS: CHOLECALCIFEROL (D3) 1000 UNIT TABLET PO SCH (09:07)
[2019-05-05] MEDS: FUROSEMIDE 40MG TABLET PO SCH (09:07)
[2019-05-05] MEDS: MYCOPHENOLATE MOFETIL 250MG CAPSULE PO SCH ×2 (09:07→21:31)
[2019-05-05] MEDS: BACLOFEN 10MG TABLET PO SCH ×2 (09:07→17:55)
[2019-05-05] MEDS: CARVEDILOL 6.25 MG TABLET PO SCH ×2 (09:08→21:18)
[2019-05-05 09:51] LABS: PLATELET ESTIMATE NORMAL
[2019-05-05 12:35] LABS: INR 1.1; PROTHROMBIN TIME 11.6 sec (9.6-11.0)
[2019-05-05] MEDS: ACETYLCYSTEINE 100MG/ML 10% VIAL 4ML INH SCH (17:27)
[2019-05-05] MEDS: IPRATROPIUM/ALBUTEROL 0.5-3(2.5)MG/3ML NEB HHN PRN (17:28)
[2019-05-05] MEDS: HYDROXYCHLOROQUINE SULFATE 200MG TABLET PO SCH (17:55)
[2019-05-05] MEDS ORDERED: WARFARIN SODIUM 5MG TABLET PO SCH (18:00)
[2019-05-06] VITALS (7 sets, daily range): BP systolic 96–113; BP diastolic 59–71
[2019-05-06] MEDS: ACETYLCYSTEINE 100MG/ML 10% VIAL 4ML INH SCH ×3 (00:56→16:23)
[2019-05-06] MEDS: DILTIAZEM HCL 60MG TABLET PO SCH ×4 (01:16→19:13)
[2019-05-06] MEDS: ACETAMINOPHEN 500MG TABLET PO PRN (01:17)
[2019-05-06] MEDS: HYDROCORTISONE SOD SUCCINATE 100 MG/2 ML VIAL IV SCH ×2 (06:45→14:28)
[2019-05-06] MEDS: ENOXAPARIN 60MG/0.6ML SYR SUBCUT SCH ×2 (06:46→19:14)
[2019-05-06 07:16] LABS: INR 1.3; PROTHROMBIN TIME 12.9 sec (9.6-11.0)
[2019-05-06 07:30] LABS: HEMOGLOBIN. 10.7 g/dL (12.0-16.0); MEAN CORPUSCULAR HEMOGLOBIN 31.5 pg (28.0-32.0); MEAN CORPUSCULAR VOLUME 96.8 fL (81.0-99.0); MEAN PLATELET VOLUME 7.4 fl (7.4-10.4); PLATELET 207 x1000/uL (130-400); RED BLOOD CELL COUNT 3.41 mill/uL (4.2-5.4); RED CELL DISTRIBUTION WIDTH 15.2 % (11.6-14.6)
[2019-05-06 07:45] LABS: CHLORIDE 101 mEq/L (98-107)
[2019-05-06] MEDS: IPRATROPIUM/ALBUTEROL 0.5-3(2.5)MG/3ML NEB HHN PRN ×2 (09:02→16:23)
[2019-05-06 09:12] LABS: PLATELET ESTIMATE NORMAL
[2019-05-06] MEDS: FUROSEMIDE 40MG TABLET PO SCH (09:42)
[2019-05-06] MEDS: FERROUS SULFATE 325MG TABLET PO SCH (09:42)
[2019-05-06] MEDS: MYCOPHENOLATE MOFETIL 250MG CAPSULE PO SCH (09:42)
[2019-05-06] MEDS: CHOLECALCIFEROL (D3) 1000 UNIT TABLET PO SCH (09:42)
[2019-05-06] MEDS: CARVEDILOL 6.25 MG TABLET PO SCH (09:43)
[2019-05-06] MEDS: BACLOFEN 10MG TABLET PO SCH ×2 (09:43→19:13)
[2019-05-06] MEDS ORDERED: POTASSIUM CHLORIDE 20MEQ TABLET SR PO SCH (10:30)
[2019-05-06 13:22] LABS: INR 1.4; PROTHROMBIN TIME 14.1 sec (9.6-11.0)
[2019-05-06] MEDS ORDERED: SULFAMETHOXAZOLE/TRIMETHOPRIM 800/160MG TABLET PO SCH (14:00)
[2019-05-06] MEDS ORDERED: WARFARIN SODIUM 5MG TABLET PO NR (18:00)
[2019-05-06] MEDS: HYDROXYCHLOROQUINE SULFATE 200MG TABLET PO SCH (19:12)
[2019-06-24] MEDS ORDERED: ONDA4TAB50 PO (13:30)
[2019-06-24] MEDS ORDERED: ACET650S25 PO (13:30)
[2019-06-24] MEDS ORDERED: AMI2 PO (13:30)
[2019-06-24] MEDS ORDERED: FERR325T23 PO (13:30)
[2019-06-24] MEDS ORDERED: FAMO20TA8 PO (13:30)
[2019-06-24] MEDS ORDERED: LEVO50TA8 PO (13:30)
[2019-06-24] MEDS ORDERED: CELL2 PO (13:30)
[2019-06-24] MEDS ORDERED: HYDR200T35 PO (13:30)
[2019-06-24] MEDS ORDERED: COR3 PO (13:30)
[2019-06-24] MEDS ORDERED: BACL-141 PO (13:30)
[2019-06-24] MEDS ORDERED: IPRA3AMP9 HHN ×2 (13:30)
[2019-06-24] MEDS ORDERED: FURO40TA5 PO (13:30)
[2019-06-24] MEDS ORDERED: ZNOU TOP (13:30)
[2019-06-24] MEDS ORDERED: MUC103 INH (13:30)
[2019-06-24] MEDS ORDERED: TUSSL PO (13:30)
[2019-06-24] MEDS ORDERED: TC1U15 TOP (13:30)
[2019-06-25] MEDS ORDERED: SULF1TAB48 MT (11:00)
[2019-06-25] MEDS ORDERED: HYDR200T35 PO (11:00)
== END 2019-05-06 20:45 | DRG 545 ==
LOC: ER 09:05 → EDBEDREQTM 12:04 → ENRESERV 04-30 10:14 → 3WST 04-30 10:14 → 5WST 05-05 14:37
PROVIDERS: ADMIT Internal Medicine; ATTEND Internal Medicine
PROC: 0W9B3ZZ Drainage of Left Pleural Cavity, Percutaneous Approach (ICD-10-PCS; principal; 2019-05-02)
DX: M32.13 Lung involvement in systemic lupus erythematosus (principal); J96.21 Acute and chronic respiratory failure with hypoxia; I50.43 Acute on chronic combined systolic (congestive) and diastolic (congestive) heart failure; I13.0 Hypertensive heart and chronic kidney disease with heart failure and stage 1 through stage 4 chronic kidney disease, or unspecified chronic kidney disease; S72.4 Fracture of lower end of femur; E87.2 Acidosis; D68.9 Coagulation defect, unspecified; N17.9 Acute kidney failure, unspecified; I42.9 Cardiomyopathy, unspecified; I48.92 Unspecified atrial flutter; J91.8 Pleural effusion in other conditions classified elsewhere; N18.9 Chronic kidney disease, unspecified; E87.6 Hypokalemia; M81.0 Age-related osteoporosis without current pathological fracture; Z96.641 Presence of right artificial hip joint; M47.817 Spondylosis without myelopathy or radiculopathy, lumbosacral region; E87.5 Hyperkalemia; B18.2 Chronic viral hepatitis C; D64.9 Anemia, unspecified; E03.9 Hypothyroidism, unspecified; I05.9 Rheumatic mitral valve disease, unspecified; I25.10 Atherosclerotic heart disease of native coronary artery without angina pectoris; I27.20 Pulmonary hypertension, unspecified; I48.91 Unspecified atrial fibrillation; I49.5 Sick sinus syndrome; J44.9 Chronic obstructive pulmonary disease, unspecified; K59.00 Constipation, unspecified; X58.XXXA Exposure to other specified factors, initial encounter; M43.17 Spondylolisthesis, lumbosacral region; M43.12 Spondylolisthesis, cervical region; M47.812 Spondylosis without myelopathy or radiculopathy, cervical region; M24.561 Contracture, right knee; Z79.01 Long term (current) use of anticoagulants; Z79.899 Other long term (current) drug therapy; Z86.74 Personal history of sudden cardiac arrest; Z87.891 Personal history of nicotine dependence; Z95.0 Presence of cardiac pacemaker; Z95.2 Presence of prosthetic heart valve; Z87.01 Personal history of pneumonia (recurrent); Z88.8 Allergy status to other drugs, medicaments and biological substances; Z88.1 Allergy status to other antibiotic agents; Y93.89 Activity, other specified; Y92.89 Other specified places as the place of occurrence of the external cause; Y99.8 Other external cause status
CPT/HCPCS: 32555; 36415; 36600; 71045; 76770; 80048; 80053; 80061; 80305; 81003; 82040; 82375; 82805; 82962; 83735; 83880; 84132; 84443; 84484; 85025; 85027; 85379; 87077; 89060; 93005; 93306; 94640; 94644; 94660; 96374; 96375; 97162; 99285; J1650; J1720; J1815; J1940; J2930; J3475; J3490; J7517; J7608; A4315

== ENCOUNTER 2019-06-11 21:08 | Inpatient (IN) | payer MEDICARE, MEDICAID ==
[~2019-06-11] VITALS: Ht 154.9 cm; Wt 45.4 kg
[2019-06-11 20:00] VITALS: BP 110/78
[2019-06-11 22:00] VITALS: BP 110/78
[2019-06-11] MEDS ORDERED: DEXTROSE 50% WATER 50ML SYRINGE IV PRN (22:15)
[2019-06-11] MEDS ORDERED: ONDANSETRON HCL 4MG TABLET PO PRN (22:15)
[2019-06-11] MEDS ORDERED: BISACODYL 5MG TABLET PO PRN (22:15)
[2019-06-11] MEDS ORDERED: ACETAMINOPHEN 500MG TABLET PO PRN (22:15)
[2019-06-11] MEDS ORDERED: GUAIFENESIN-DM 200MG-20MG/10ML UDC PO PRN (22:15)
[2019-06-11] MEDS ORDERED: IPRATROPIUM/ALBUTEROL 0.5-3(2.5)MG/3ML NEB HHN PRN (22:15)
[2019-06-11] MEDS: INSULIN LISPRO 100 UNITS/ML SUBCUT SCH (23:00)
[2019-06-11] MEDS: BLOOD SUGAR DIAGNOSTIC STRIP TEST SCH (23:30)
[2019-06-11] MEDS: PANTOT AC/MIN OIL/PET HY-PHL OINT (AQUAPHOR) TOP SCH (23:31)
[2019-06-11] MEDS: ZINC OXIDE 20% OINT 30GM TOP SCH (23:31)
[2019-06-12] MEDS ORDERED: THROAT LOZENGES-BENZOCAINE/MENTH/CETYLPYRD CL LOZENGES MM PRN
[2019-06-12] MEDS: CARVEDILOL 6.25 MG TABLET PO SCH ×3 (00:01→21:50)
[2019-06-12] MEDS: ACETAMINOPHEN 650MG/20.3ML UDC PO PRN ×2 (00:01→21:50)
[2019-06-12] MEDS: IPRATROPIUM/ALBUTEROL 0.5-3(2.5)MG/3ML NEB HHN SCH ×3 (05:05→20:58)
[2019-06-12] MEDS: ACETYLCYSTEINE 100MG/ML 10% VIAL 4ML INH SCH ×3 (05:06→20:58)
[2019-06-12] MEDS: INSULIN LISPRO 100 UNITS/ML SUBCUT SCH (06:26)
[2019-06-12] MEDS: BLOOD SUGAR DIAGNOSTIC STRIP TEST SCH (06:26)
[2019-06-12 06:30] LABS: INR 1.6; PROTHROMBIN TIME 17.2 sec (9.6-11.0)
[2019-06-12 06:37] LABS: CHLORIDE 111 mEq/L (98-107)
[2019-06-12 07:23] LABS: BASOPHILS % 0.8 % (0.0-2.0); EOSINOPHILS % 1.3 % (0.0-5.0); HEMATOCRIT. 34.2 % (36.0-48.0); HEMOGLOBIN. 11.2 g/dL (12.0-16.0); LYMPHOCYTES % 7.8 % (20.0-50.0); MEAN CORPUSCULAR HEMOGLOBIN 32.7 pg (28.0-32.0); MEAN CORPUSCULAR VOLUME 99.7 fL (81.0-99.0); MEAN PLATELET VOLUME 6.9 fl (7.4-10.4); MONOCYTES % 9.6 % (2.0-8.0); NEUTROPHILS % 80.5 % (40.0-76.0); PLATELET 216 x1000/uL (130-400); RED BLOOD CELL COUNT 3.44 mill/uL (4.2-5.4); RED CELL DISTRIBUTION WIDTH 17.8 % (11.6-14.6)
[2019-06-12 07:58] VITALS: BP 182/100
[2019-06-12] MEDS: ZINC OXIDE 20% OINT 30GM TOP SCH ×2 (08:25→21:36)
[2019-06-12] MEDS: FERROUS SULFATE 325MG TABLET PO SCH (08:25)
[2019-06-12] MEDS: PANTOT AC/MIN OIL/PET HY-PHL OINT (AQUAPHOR) TOP SCH ×2 (08:25→21:36)
[2019-06-12] MEDS: TRIAMCINOLONE ACETONIDE 0.1 % OINT 15GM TOP SCH ×2 (08:25→21:36)
[2019-06-12] MEDS: AMIODARONE HCL 200 MG TABLET PO SCH ×3 (08:25→21:34)
[2019-06-12] MEDS: FUROSEMIDE 40MG TABLET PO SCH (08:26)
[2019-06-12] MEDS: BACLOFEN 10MG TABLET PO SCH ×2 (08:26→16:58)
[2019-06-12] MEDS: SPIRONOLACTONE 50MG TABLET PO SCH (08:27)
[2019-06-12] MEDS: MYCOPHENOLATE MOFETIL 250MG CAPSULE PO SCH ×2 (08:27→21:34)
[2019-06-12] MEDS: CHOLECALCIFEROL (D3) 1000 UNIT TABLET PO SCH (08:27)
[2019-06-12] MEDS: HYDROXYCHLOROQUINE SULFATE 200MG TABLET PO SCH (08:27)
[2019-06-12 11:00] VITALS: BP 123/81
[2019-06-12] MEDS ORDERED: CLONIDINE 0.1MG TABLET PO PRN (11:30)
[2019-06-12] MEDS: AMLODIPINE 5MG TABLET PO SCH ×2 (13:15→21:50)
[2019-06-12 13:33] VITALS: BP 94/64
[2019-06-12] MEDS ORDERED: WARFARIN SODIUM 2.5MG TABLET PO SCH (18:00)
[2019-06-12 20:00] VITALS: BP 96/67
[2019-06-13 08:10] LABS: HEMATOCRIT. 34.4 % (36.0-48.0); HEMOGLOBIN. 11.6 g/dL (12.0-16.0); MEAN CORPUSCULAR HEMOGLOBIN 33.5 pg (28.0-32.0); MEAN CORPUSCULAR VOLUME 99.4 fL (81.0-99.0); MEAN PLATELET VOLUME 6.7 fl (7.4-10.4); PLATELET 227 x1000/uL (130-400); RED BLOOD CELL COUNT 3.46 mill/uL (4.2-5.4); RED CELL DISTRIBUTION WIDTH 17.9 % (11.6-14.6)
[2019-06-13 08:14] VITALS: BP 100/70
[2019-06-13 08:18] LABS: INR 1.5; PROTHROMBIN TIME 16.2 sec (9.6-11.0)
[2019-06-13] MEDS: CARVEDILOL 6.25 MG TABLET PO SCH ×2 (08:51→21:38)
[2019-06-13] MEDS: AMLODIPINE 5MG TABLET PO SCH ×2 (08:51→21:00)
[2019-06-13] MEDS: IPRATROPIUM/ALBUTEROL 0.5-3(2.5)MG/3ML NEB HHN SCH ×2 (09:00→21:30)
[2019-06-13] MEDS: ACETYLCYSTEINE 100MG/ML 10% VIAL 4ML INH SCH ×2 (09:00→21:00)
[2019-06-13] MEDS: MYCOPHENOLATE MOFETIL 250MG CAPSULE PO SCH ×2 (09:51→21:37)
[2019-06-13] MEDS: FUROSEMIDE 40MG TABLET PO SCH (09:52)
[2019-06-13] MEDS: SPIRONOLACTONE 50MG TABLET PO SCH (09:52)
[2019-06-13] MEDS: AMIODARONE HCL 200 MG TABLET PO SCH ×2 (09:52→21:38)
[2019-06-13] MEDS: BACLOFEN 10MG TABLET PO SCH ×2 (09:52→16:36)
[2019-06-13] MEDS: FERROUS SULFATE 325MG TABLET PO SCH (09:52)
[2019-06-13] MEDS: CHOLECALCIFEROL (D3) 1000 UNIT TABLET PO SCH (09:52)
[2019-06-13] MEDS: HYDROXYCHLOROQUINE SULFATE 200MG TABLET PO SCH (09:52)
[2019-06-13] MEDS: TRIAMCINOLONE ACETONIDE 0.1 % OINT 15GM TOP SCH ×2 (09:53→21:39)
[2019-06-13] MEDS: ZINC OXIDE 20% OINT 30GM TOP SCH ×2 (09:53→21:39)
[2019-06-13] MEDS: PANTOT AC/MIN OIL/PET HY-PHL OINT (AQUAPHOR) TOP SCH ×2 (09:53→21:39)
[2019-06-13 11:39] LABS: PLATELET ESTIMATE NORMAL
[2019-06-13] MEDS: ENOXAPARIN 60MG/0.6ML SYR SUBCUT SCH (16:32)
[2019-06-13] MEDS ORDERED: WARFARIN SODIUM 3MG TABLET PO SCH (18:00)
[2019-06-13 20:00] VITALS: BP 97/68
[2019-06-14] MEDS: ACETYLCYSTEINE 100MG/ML 10% VIAL 4ML INH SCH ×2 (05:00→15:43)
[2019-06-14 07:26] LABS: INR 1.8; PROTHROMBIN TIME 19.7 sec (9.6-11.0)
[2019-06-14 07:38] LABS: VITAMIN B12 SERUM 971 pg/mL (211-911)
[2019-06-14 07:47] LABS: HEMATOCRIT. 33.6 % (36.0-48.0); HEMOGLOBIN. 11.1 g/dL (12.0-16.0); MEAN CORPUSCULAR HEMOGLOBIN 32.8 pg (28.0-32.0); MEAN CORPUSCULAR VOLUME 99.8 fL (81.0-99.0); PLATELET 215 x1000/uL (130-400); RED BLOOD CELL COUNT 3.37 mill/uL (4.2-5.4); RED CELL DISTRIBUTION WIDTH 18.4 % (11.6-14.6)
[2019-06-14 07:48] LABS: FOLIC ACID (FOLATE) SERUM > 20.00 ng/mL (>5.38)
[2019-06-14 07:52] LABS: PHOSPHORUS 3.3 mg/dL (2.5-4.9)
[2019-06-14 08:00] VITALS: BP 108/77
[2019-06-14] MEDS: IPRATROPIUM/ALBUTEROL 0.5-3(2.5)MG/3ML NEB HHN SCH ×2 (08:00→15:43)
[2019-06-14] MEDS: FERROUS SULFATE 325MG TABLET PO SCH (08:55)
[2019-06-14] MEDS: SPIRONOLACTONE 50MG TABLET PO SCH (08:56)
[2019-06-14] MEDS: CARVEDILOL 6.25 MG TABLET PO SCH ×3 (08:56→21:57)
[2019-06-14] MEDS: HYDROXYCHLOROQUINE SULFATE 200MG TABLET PO SCH (08:57)
[2019-06-14] MEDS: AMLODIPINE 5MG TABLET PO SCH ×2 (08:57→20:13)
[2019-06-14] MEDS: AMIODARONE HCL 200 MG TABLET PO SCH ×2 (08:57→20:48)
[2019-06-14] MEDS: FUROSEMIDE 40MG TABLET PO SCH (08:57)
[2019-06-14] MEDS: MYCOPHENOLATE MOFETIL 250MG CAPSULE PO SCH ×2 (08:57→20:48)
[2019-06-14] MEDS: CHOLECALCIFEROL (D3) 1000 UNIT TABLET PO SCH (08:57)
[2019-06-14] MEDS: BACLOFEN 10MG TABLET PO SCH ×2 (08:57→17:02)
[2019-06-14] MEDS: TRIAMCINOLONE ACETONIDE 0.1 % OINT 15GM TOP SCH ×2 (08:58→20:54)
[2019-06-14] MEDS: PANTOT AC/MIN OIL/PET HY-PHL OINT (AQUAPHOR) TOP SCH ×2 (08:58→20:53)
[2019-06-14] MEDS: ZINC OXIDE 20% OINT 30GM TOP SCH ×2 (08:58→20:53)
[2019-06-14] MEDS: ENOXAPARIN 60MG/0.6ML SYR SUBCUT SCH (14:02)
[2019-06-14] MEDS ORDERED: SODIUM POLYSTYRENE SULFONATE 15 G/60 ML BOT PO NR (17:00)
[2019-06-14] MEDS ORDERED: WARFARIN SODIUM 2.5MG TABLET PO SCH (18:00)
[2019-06-14 20:00] VITALS: BP 100/60
[2019-06-14] MEDS: FAMOTIDINE 20MG TABLET PO SCH (20:48)
[2019-06-14] MEDS: ACETAMINOPHEN 650MG/20.3ML UDC PO PRN (21:58)
[2019-06-15 03:29] LABS: PLATELET ESTIMATE NORMAL
[2019-06-15 06:28] LABS: INR 2.1; PROTHROMBIN TIME 22.6 sec (9.6-11.0)
[2019-06-15 06:48] LABS: HEMATOCRIT. 32.6 % (36.0-48.0); MEAN CORPUSCULAR HEMOGLOBIN 33.3 pg (28.0-32.0); MEAN CORPUSCULAR VOLUME 98.6 fL (81.0-99.0); MEAN PLATELET VOLUME 6.9 fl (7.4-10.4); PLATELET 215 x1000/uL (130-400); RED BLOOD CELL COUNT 3.31 mill/uL (4.2-5.4); RED CELL DISTRIBUTION WIDTH 17.9 % (11.6-14.6)
[2019-06-15 07:33] LABS: PHOSPHORUS 3.3 mg/dL (2.5-4.9)
[2019-06-15 07:36] LABS: T4 FREE 1.11 ng/dL (0.76-1.46)
[2019-06-15 08:25] VITALS: BP 97/70
[2019-06-15] MEDS: SPIRONOLACTONE 50MG TABLET PO SCH (08:57)
[2019-06-15] MEDS: MYCOPHENOLATE MOFETIL 250MG CAPSULE PO SCH ×2 (08:57→21:03)
[2019-06-15] MEDS: HYDROXYCHLOROQUINE SULFATE 200MG TABLET PO SCH (08:57)
[2019-06-15] MEDS: FERROUS SULFATE 325MG TABLET PO SCH (08:57)
[2019-06-15] MEDS: CARVEDILOL 6.25 MG TABLET PO SCH ×2 (08:58→21:00)
[2019-06-15] MEDS: FUROSEMIDE 40MG TABLET PO SCH (08:58)
[2019-06-15] MEDS: CHOLECALCIFEROL (D3) 1000 UNIT TABLET PO SCH (08:58)
[2019-06-15] MEDS: AMIODARONE HCL 200 MG TABLET PO SCH ×2 (08:58→21:03)
[2019-06-15] MEDS: AMLODIPINE 5MG TABLET PO SCH ×2 (08:59→21:00)
[2019-06-15] MEDS: BACLOFEN 10MG TABLET PO SCH ×2 (08:59→17:06)
[2019-06-15] MEDS: TRIAMCINOLONE ACETONIDE 0.1 % OINT 15GM TOP SCH ×2 (09:01→21:04)
[2019-06-15] MEDS: ZINC OXIDE 20% OINT 30GM TOP SCH ×2 (09:01→21:04)
[2019-06-15] MEDS: PANTOT AC/MIN OIL/PET HY-PHL OINT (AQUAPHOR) TOP SCH ×2 (09:01→21:04)
[2019-06-15] MEDS: SPIRONOLACTONE 25MG TABLET PO SCH (10:00)
[2019-06-15] MEDS: IPRATROPIUM/ALBUTEROL 0.5-3(2.5)MG/3ML NEB HHN SCH ×2 (10:15→19:58)
[2019-06-15] MEDS: ACETYLCYSTEINE 100MG/ML 10% VIAL 4ML INH SCH ×2 (10:15→20:07)
[2019-06-15] MEDS ORDERED: WARFARIN SODIUM 2.5MG TABLET PO NR (18:00)
[2019-06-15 20:00] VITALS: BP_SYST 120; BP_SYST 92; BP_DIAS 49; BP_DIAS 60
[2019-06-15] MEDS: FAMOTIDINE 20MG TABLET PO SCH (21:03)
[2019-06-15] MEDS: ACETAMINOPHEN 650MG/20.3ML UDC PO PRN (21:04)
[2019-06-16 07:00] LABS: HEMATOCRIT. 31.6 % (36.0-48.0); HEMOGLOBIN. 10.6 g/dL (12.0-16.0); MEAN CORPUSCULAR HEMOGLOBIN 33.2 pg (28.0-32.0); MEAN CORPUSCULAR VOLUME 99.2 fL (81.0-99.0); PLATELET 199 x1000/uL (130-400); RED BLOOD CELL COUNT 3.18 mill/uL (4.2-5.4); RED CELL DISTRIBUTION WIDTH 18.2 % (11.6-14.6)
[2019-06-16 07:07] LABS: INR 2.5; PROTHROMBIN TIME 26.3 sec (9.6-11.0)
[2019-06-16 07:30] VITALS: BP 94/64
[2019-06-16] MEDS: CHOLECALCIFEROL (D3) 1000 UNIT TABLET PO SCH (08:26)
[2019-06-16] MEDS: MYCOPHENOLATE MOFETIL 250MG CAPSULE PO SCH ×2 (08:26→22:06)
[2019-06-16] MEDS: FERROUS SULFATE 325MG TABLET PO SCH (08:27)
[2019-06-16] MEDS: AMIODARONE HCL 200 MG TABLET PO SCH ×3 (08:27→22:06)
[2019-06-16] MEDS: BACLOFEN 10MG TABLET PO SCH ×2 (08:27→17:22)
[2019-06-16] MEDS: HYDROXYCHLOROQUINE SULFATE 200MG TABLET PO SCH (08:27)
[2019-06-16] MEDS: PANTOT AC/MIN OIL/PET HY-PHL OINT (AQUAPHOR) TOP SCH ×2 (09:10→22:08)
[2019-06-16] MEDS: TRIAMCINOLONE ACETONIDE 0.1 % OINT 15GM TOP SCH ×2 (09:10→21:00)
[2019-06-16] MEDS: ZINC OXIDE 20% OINT 30GM TOP SCH ×2 (09:10→21:00)
[2019-06-16 09:15] VITALS: BP 130/76
[2019-06-16] MEDS: FUROSEMIDE 40MG TABLET PO SCH (09:22)
[2019-06-16] MEDS: CARVEDILOL 6.25 MG TABLET PO SCH ×2 (09:23→21:00)
[2019-06-16] MEDS: SPIRONOLACTONE 25MG TABLET PO SCH (09:23)
[2019-06-16] MEDS: AMLODIPINE 5MG TABLET PO SCH (09:23)
[2019-06-16 13:57] LABS: PLATELET ESTIMATE NORMAL
[2019-06-16 14:40] LABS: PLATELET ESTIMATE NORMAL
[2019-06-16] MEDS: ACETYLCYSTEINE 100MG/ML 10% VIAL 4ML INH SCH ×2 (15:53→21:00)
[2019-06-16] MEDS: IPRATROPIUM/ALBUTEROL 0.5-3(2.5)MG/3ML NEB HHN SCH ×2 (15:58→21:00)
[2019-06-16] MEDS ORDERED: WARFARIN SODIUM 2.5MG TABLET PO NR (18:00)
[2019-06-16 20:00] VITALS: BP 89/57
[2019-06-16] MEDS: FAMOTIDINE 20MG TABLET PO SCH (22:06)
[2019-06-16] MEDS: ACETAMINOPHEN 650MG/20.3ML UDC PO PRN (23:20)
[2019-06-17] MEDS: LEVOTHYROXINE SODIUM 50MCG TABLET PO SCH (06:06)
[2019-06-17 07:03] LABS: BASOPHILS % 0.1 % (0.0-2.0); EOSINOPHILS % 0.9 % (0.0-5.0); HEMATOCRIT. 31.5 % (36.0-48.0); HEMOGLOBIN. 10.7 g/dL (12.0-16.0); LYMPHOCYTES % 7.7 % (20.0-50.0); MEAN CORPUSCULAR HEMOGLOBIN 33.9 pg (28.0-32.0); MEAN CORPUSCULAR VOLUME 100.2 fL (81.0-99.0); MEAN PLATELET VOLUME 7.2 fl (7.4-10.4); MONOCYTES % 9.9 % (2.0-8.0); NEUTROPHILS % 81.4 % (40.0-76.0); PLATELET 220 x1000/uL (130-400); RED BLOOD CELL COUNT 3.15 mill/uL (4.2-5.4)
[2019-06-17 07:46] LABS: INR 2.5; PROTHROMBIN TIME 26.1 sec (9.6-11.0)
[2019-06-17 08:10] VITALS: BP 87/60
[2019-06-17] MEDS: IPRATROPIUM/ALBUTEROL 0.5-3(2.5)MG/3ML NEB HHN SCH ×2 (09:00→20:26)
[2019-06-17] MEDS: CHOLECALCIFEROL (D3) 1000 UNIT TABLET PO SCH (09:40)
[2019-06-17] MEDS: MYCOPHENOLATE MOFETIL 250MG CAPSULE PO SCH ×2 (09:40→22:02)
[2019-06-17] MEDS: BACLOFEN 10MG TABLET PO SCH ×2 (09:40→16:09)
[2019-06-17] MEDS: FERROUS SULFATE 325MG TABLET PO SCH (09:40)
[2019-06-17] MEDS: HYDROXYCHLOROQUINE SULFATE 200MG TABLET PO SCH (09:40)
[2019-06-17] MEDS: AMIODARONE HCL 200 MG TABLET PO SCH ×2 (09:41→16:09)
[2019-06-17] MEDS: CARVEDILOL 6.25 MG TABLET PO SCH (09:41)
[2019-06-17] MEDS: TRIAMCINOLONE ACETONIDE 0.1 % OINT 15GM TOP SCH ×2 (09:42→22:03)
[2019-06-17] MEDS: SPIRONOLACTONE 25MG TABLET PO SCH (09:42)
[2019-06-17] MEDS: ZINC OXIDE 20% OINT 30GM TOP SCH ×2 (09:42→22:04)
[2019-06-17] MEDS: PANTOT AC/MIN OIL/PET HY-PHL OINT (AQUAPHOR) TOP SCH ×2 (09:42→22:03)
[2019-06-17] MEDS: FUROSEMIDE 40MG TABLET PO SCH (09:42)
[2019-06-17 09:46] VITALS: BP 135/82
[2019-06-17] MEDS ORDERED: WARF-53 MT (13:56)
[2019-06-17] MEDS ORDERED: LIDO30CR46 TP (13:56)
[2019-06-17] MEDS ORDERED: DOCU250C69 PO (14:01)
[2019-06-17] MEDS ORDERED: SPIR25TA6 PO (14:04)
[2019-06-17] MEDS ORDERED: SODI15OR5 PO (14:07)
[2019-06-17] MEDS ORDERED: DENO60DI SQ (14:07)
[2019-06-17] MEDS ORDERED: GUAI120017 PO (14:07)
[2019-06-17] MEDS ORDERED: MUC20 INH (14:11)
[2019-06-17] MEDS ORDERED: IPRA3AMP9 HHN (14:13)
[2019-06-17] MEDS ORDERED: CELL2 PO (14:14)
[2019-06-17] MEDS ORDERED: WARFARIN SODIUM 2.5MG TABLET PO NR (18:00)
[2019-06-17 20:00] VITALS: BP 102/69
[2019-06-17] MEDS: FAMOTIDINE 20MG TABLET PO SCH (22:02)
[2019-06-17] MEDS: CARVEDILOL 3.125 MG TABLET PO SCH (22:03)
[2019-06-17] MEDS: ACETAMINOPHEN 650MG/20.3ML UDC PO PRN (22:39)
[2019-06-18] MEDS: LEVOTHYROXINE SODIUM 50MCG TABLET PO SCH (06:17)
[2019-06-18 06:41] LABS: INR 2.6; PROTHROMBIN TIME 27.9 sec (9.6-11.0)
[2019-06-18 07:19] LABS: BASOPHILS % 0.6 % (0.0-2.0); EOSINOPHILS % 0.9 % (0.0-5.0); HEMATOCRIT. 30.4 % (36.0-48.0); HEMOGLOBIN. 10.2 g/dL (12.0-16.0); LYMPHOCYTES % 8.1 % (20.0-50.0); MEAN CORPUSCULAR HEMOGLOBIN 33.4 pg (28.0-32.0); MEAN CORPUSCULAR VOLUME 99.8 fL (81.0-99.0); MEAN PLATELET VOLUME 7.5 fl (7.4-10.4); MONOCYTES % 11.8 % (2.0-8.0); NEUTROPHILS % 78.6 % (40.0-76.0); PLATELET 200 x1000/uL (130-400); RED BLOOD CELL COUNT 3.05 mill/uL (4.2-5.4); RED CELL DISTRIBUTION WIDTH 17.9 % (11.6-14.6)
[2019-06-18 07:47] VITALS: BP 98/62
[2019-06-18] MEDS: IPRATROPIUM/ALBUTEROL 0.5-3(2.5)MG/3ML NEB HHN SCH ×2 (09:00→20:58)
[2019-06-18] MEDS: FERROUS SULFATE 325MG TABLET PO SCH (09:37)
[2019-06-18] MEDS: SPIRONOLACTONE 25MG TABLET PO SCH (09:37)
[2019-06-18] MEDS: FUROSEMIDE 40MG TABLET PO SCH (09:38)
[2019-06-18] MEDS: HYDROXYCHLOROQUINE SULFATE 200MG TABLET PO SCH (09:38)
[2019-06-18] MEDS: BACLOFEN 10MG TABLET PO SCH ×2 (09:38→17:02)
[2019-06-18] MEDS: MYCOPHENOLATE MOFETIL 250MG CAPSULE PO SCH ×2 (09:38→22:17)
[2019-06-18] MEDS: CHOLECALCIFEROL (D3) 1000 UNIT TABLET PO SCH (09:38)
[2019-06-18] MEDS: CARVEDILOL 3.125 MG TABLET PO SCH ×2 (09:38→21:00)
[2019-06-18] MEDS: TRIAMCINOLONE ACETONIDE 0.1 % OINT 15GM TOP SCH ×2 (09:39→22:17)
[2019-06-18] MEDS: PANTOT AC/MIN OIL/PET HY-PHL OINT (AQUAPHOR) TOP SCH ×2 (09:39→22:16)
[2019-06-18] MEDS: ZINC OXIDE 20% OINT 30GM TOP SCH ×2 (09:39→22:17)
[2019-06-18] MEDS: AMIODARONE HCL 200 MG TABLET PO SCH ×2 (09:39→17:02)
[2019-06-18] MEDS ORDERED: WARFARIN SODIUM 2.5MG TABLET PO NR (18:00)
[2019-06-18 20:00] VITALS: BP 95/62
[2019-06-18] MEDS: FAMOTIDINE 20MG TABLET PO SCH (22:17)
[2019-06-19] MEDS: ACETAMINOPHEN 650MG/20.3ML UDC PO PRN ×2 (00:16→23:36)
[2019-06-19] MEDS: LEVOTHYROXINE SODIUM 50MCG TABLET PO SCH (06:27)
[2019-06-19 06:40] LABS: INR 2.7; PROTHROMBIN TIME 28.9 sec (9.6-11.0)
[2019-06-19 07:59] VITALS: BP 92/60
[2019-06-19] MEDS: HYDROXYCHLOROQUINE SULFATE 200MG TABLET PO SCH (09:23)
[2019-06-19] MEDS: MYCOPHENOLATE MOFETIL 250MG CAPSULE PO SCH ×2 (09:23→21:11)
[2019-06-19] MEDS: CHOLECALCIFEROL (D3) 1000 UNIT TABLET PO SCH (09:23)
[2019-06-19] MEDS: CARVEDILOL 3.125 MG TABLET PO SCH ×2 (09:23→21:11)
[2019-06-19] MEDS: FERROUS SULFATE 325MG TABLET PO SCH (09:23)
[2019-06-19] MEDS: BACLOFEN 10MG TABLET PO SCH ×2 (09:24→17:02)
[2019-06-19] MEDS: PANTOT AC/MIN OIL/PET HY-PHL OINT (AQUAPHOR) TOP SCH ×2 (09:24→21:14)
[2019-06-19] MEDS: AMIODARONE HCL 200 MG TABLET PO SCH ×2 (09:24→17:03)
[2019-06-19] MEDS: FUROSEMIDE 40MG TABLET PO SCH (09:24)
[2019-06-19] MEDS: SPIRONOLACTONE 25MG TABLET PO SCH (09:24)
[2019-06-19] MEDS: TRIAMCINOLONE ACETONIDE 0.1 % OINT 15GM TOP SCH ×2 (09:25→21:14)
[2019-06-19] MEDS: ZINC OXIDE 20% OINT 30GM TOP SCH ×2 (09:25→21:14)
[2019-06-19] MEDS: IPRATROPIUM/ALBUTEROL 0.5-3(2.5)MG/3ML NEB HHN SCH ×2 (09:29→21:00)
[2019-06-19] MEDS ORDERED: WARFARIN SODIUM 2.5MG TABLET PO SCH (18:00)
[2019-06-19 19:09] LABS: 25-HYDROXY VITAMIN D3 37 ng/mL (.)
[2019-06-19] MEDS ORDERED: ERGOCALCIFEROL 50000UNITS CAPSULE PO SCH (20:00)
[2019-06-19 20:47] VITALS: BP 90/64
[2019-06-19] MEDS: FAMOTIDINE 20MG TABLET PO SCH (21:11)
[2019-06-20] MEDS: LEVOTHYROXINE SODIUM 50MCG TABLET PO SCH (06:41)
[2019-06-20 08:00] VITALS: BP 95/60
[2019-06-20 08:07] LABS: INR 2.9; PROTHROMBIN TIME 30.8 sec (9.6-11.0)
[2019-06-20] MEDS: FUROSEMIDE 40MG TABLET PO SCH (08:46)
[2019-06-20] MEDS: CARVEDILOL 3.125 MG TABLET PO SCH ×2 (08:46→21:00)
[2019-06-20] MEDS: BACLOFEN 10MG TABLET PO SCH ×2 (08:46→16:27)
[2019-06-20] MEDS: HYDROXYCHLOROQUINE SULFATE 200MG TABLET PO SCH (08:46)
[2019-06-20] MEDS: AMIODARONE HCL 200 MG TABLET PO SCH ×2 (08:46→16:26)
[2019-06-20] MEDS: MYCOPHENOLATE MOFETIL 250MG CAPSULE PO SCH ×2 (08:47→21:00)
[2019-06-20] MEDS: TRIAMCINOLONE ACETONIDE 0.1 % OINT 15GM TOP SCH ×2 (08:47→21:02)
[2019-06-20] MEDS: PANTOT AC/MIN OIL/PET HY-PHL OINT (AQUAPHOR) TOP SCH ×2 (08:47→21:02)
[2019-06-20] MEDS: ZINC OXIDE 20% OINT 30GM TOP SCH ×2 (08:47→21:02)
[2019-06-20] MEDS: FERROUS SULFATE 325MG TABLET PO SCH (08:47)
[2019-06-20] MEDS: SPIRONOLACTONE 25MG TABLET PO SCH (08:47)
[2019-06-20] MEDS ORDERED: WARFARIN SODIUM 2MG TABLET PO SCH (14:45)
[2019-06-20 15:47] LABS: FERRITIN 69 ng/mL (10-291)
[2019-06-20 20:00] VITALS: BP 92/64
[2019-06-20] MEDS: IPRATROPIUM/ALBUTEROL 0.5-3(2.5)MG/3ML NEB HHN SCH ×2 (20:26→23:48)
[2019-06-20] MEDS: GUAIFENESIN 600MG ER TABLET PO SCH (20:59)
[2019-06-20] MEDS: FAMOTIDINE 20MG TABLET PO SCH (21:00)
[2019-06-20] MEDS: ACETAMINOPHEN 650MG/20.3ML UDC PO PRN (22:57)
[2019-06-21] MEDS: LEVOTHYROXINE SODIUM 50MCG TABLET PO SCH (06:30)
[2019-06-21 06:58] LABS: HEMATOCRIT. 29.7 % (36.0-48.0); HEMOGLOBIN. 9.9 g/dL (12.0-16.0); MEAN CORPUSCULAR HEMOGLOBIN 33.4 pg (28.0-32.0); MEAN CORPUSCULAR VOLUME 100.1 fL (81.0-99.0); MEAN PLATELET VOLUME 6.9 fl (7.4-10.4); PLATELET 205 x1000/uL (130-400); RED BLOOD CELL COUNT 2.96 mill/uL (4.2-5.4)
[2019-06-21 07:10] LABS: INR 3.2; PROTHROMBIN TIME 33.7 sec (9.6-11.0)
[2019-06-21 08:02] VITALS: BP 99/63
[2019-06-21] MEDS: IPRATROPIUM/ALBUTEROL 0.5-3(2.5)MG/3ML NEB HHN SCH ×2 (08:58→21:49)
[2019-06-21] MEDS: HYDROXYCHLOROQUINE SULFATE 200MG TABLET PO SCH (09:02)
[2019-06-21] MEDS: GUAIFENESIN 600MG ER TABLET PO SCH (09:02)
[2019-06-21] MEDS: SPIRONOLACTONE 25MG TABLET PO SCH (09:02)
[2019-06-21] MEDS: AMIODARONE HCL 200 MG TABLET PO SCH ×2 (09:02→17:19)
[2019-06-21] MEDS: CARVEDILOL 3.125 MG TABLET PO SCH ×2 (09:02→20:36)
[2019-06-21] MEDS: MYCOPHENOLATE MOFETIL 250MG CAPSULE PO SCH ×2 (09:03→20:35)
[2019-06-21] MEDS: FERROUS SULFATE 325MG TABLET PO SCH (09:03)
[2019-06-21] MEDS: FUROSEMIDE 40MG TABLET PO SCH (09:03)
[2019-06-21] MEDS: BACLOFEN 10MG TABLET PO SCH ×2 (09:03→17:19)
[2019-06-21] MEDS: TRIAMCINOLONE ACETONIDE 0.1 % OINT 15GM TOP SCH ×2 (09:08→20:40)
[2019-06-21] MEDS: PANTOT AC/MIN OIL/PET HY-PHL OINT (AQUAPHOR) TOP SCH ×2 (09:08→20:40)
[2019-06-21] MEDS: ZINC OXIDE 20% OINT 30GM TOP SCH ×2 (09:10→20:40)
[2019-06-21] MEDS ORDERED: SODIUM POLYSTYRENE SULFONATE 15 G/60 ML BOT PO NR (11:30)
[2019-06-21] MEDS ORDERED: WARFARIN SODIUM 2MG TABLET PO NR (18:00)
[2019-06-21 20:00] VITALS: BP 93/57
[2019-06-21] MEDS: FAMOTIDINE 20MG TABLET PO SCH (20:36)
[2019-06-21] MEDS: ACETYLCYSTEINE 100MG/ML 10% VIAL 4ML INH SCH (21:49)
[2019-06-21 22:22] LABS: PLATELET ESTIMATE NORMAL
[2019-06-21] MEDS: ACETAMINOPHEN 650MG/20.3ML UDC PO PRN (22:49)
[2019-06-22] MEDS: LEVOTHYROXINE SODIUM 50MCG TABLET PO SCH (06:19)
[2019-06-22 06:43] LABS: INR 2.9; PROTHROMBIN TIME 30.2 sec (9.6-11.0)
[2019-06-22 06:48] LABS: HEMOGLOBIN. 9.6 g/dL (12.0-16.0); MEAN CORPUSCULAR HEMOGLOBIN 33.1 pg (28.0-32.0); MEAN CORPUSCULAR VOLUME 100.2 fL (81.0-99.0); PLATELET 199 x1000/uL (130-400); RED CELL DISTRIBUTION WIDTH 18.2 % (11.6-14.6)
[2019-06-22] MEDS: IPRATROPIUM/ALBUTEROL 0.5-3(2.5)MG/3ML NEB HHN SCH (07:25)
[2019-06-22 09:09] VITALS: BP 117/52
[2019-06-22] MEDS: HYDROXYCHLOROQUINE SULFATE 200MG TABLET PO SCH (09:27)
[2019-06-22] MEDS: FERROUS SULFATE 325MG TABLET PO SCH (09:27)
[2019-06-22] MEDS: BACLOFEN 10MG TABLET PO SCH ×2 (09:27→17:00)
[2019-06-22] MEDS: AMIODARONE HCL 200 MG TABLET PO SCH (09:27)
[2019-06-22] MEDS: MYCOPHENOLATE MOFETIL 250MG CAPSULE PO SCH ×2 (09:27→21:25)
[2019-06-22] MEDS: FUROSEMIDE 40MG TABLET PO SCH (09:28)
[2019-06-22] MEDS: CARVEDILOL 3.125 MG TABLET PO SCH ×2 (09:28→21:26)
[2019-06-22] MEDS: PANTOT AC/MIN OIL/PET HY-PHL OINT (AQUAPHOR) TOP SCH ×2 (09:30→21:26)
[2019-06-22] MEDS: TRIAMCINOLONE ACETONIDE 0.1 % OINT 15GM TOP SCH ×2 (09:30→21:26)
[2019-06-22] MEDS: ZINC OXIDE 20% OINT 30GM TOP SCH ×2 (09:31→21:29)
[2019-06-22 14:53] LABS: PLATELET ESTIMATE NORMAL
[2019-06-22] MEDS ORDERED: WARFARIN SODIUM 2MG TABLET PO NR (18:00)
[2019-06-22 20:00] VITALS: BP 101/71
[2019-06-22] MEDS: FAMOTIDINE 20MG TABLET PO SCH (21:25)
[2019-06-23] MEDS: ACETAMINOPHEN 650MG/20.3ML UDC PO PRN ×2 (01:55→21:59)
[2019-06-23] MEDS: LEVOTHYROXINE SODIUM 50MCG TABLET PO SCH (06:24)
[2019-06-23 06:55] LABS: INR 2.3; PROTHROMBIN TIME 24.2 sec (9.6-11.0)
[2019-06-23 07:07] LABS: BASOPHILS % 0.6 % (0.0-2.0); HEMATOCRIT. 31.4 % (36.0-48.0); HEMOGLOBIN. 10.3 g/dL (12.0-16.0); MEAN CORPUSCULAR HEMOGLOBIN 33.4 pg (28.0-32.0); MEAN CORPUSCULAR VOLUME 101.5 fL (81.0-99.0); MONOCYTES % 10.7 % (2.0-8.0); NEUTROPHILS % 79.7 % (40.0-76.0); PLATELET 220 x1000/uL (130-400); RED CELL DISTRIBUTION WIDTH 18.1 % (11.6-14.6)
[2019-06-23 08:00] VITALS: BP 118/72
[2019-06-23] MEDS: IPRATROPIUM/ALBUTEROL 0.5-3(2.5)MG/3ML NEB HHN SCH ×2 (09:00→21:26)
[2019-06-23] MEDS: ACETYLCYSTEINE 100MG/ML 10% VIAL 4ML INH SCH ×2 (09:00→21:27)
[2019-06-23] MEDS: PANTOT AC/MIN OIL/PET HY-PHL OINT (AQUAPHOR) TOP SCH ×2 (09:07→20:54)
[2019-06-23] MEDS: TRIAMCINOLONE ACETONIDE 0.1 % OINT 15GM TOP SCH ×2 (09:07→20:54)
[2019-06-23] MEDS: BACLOFEN 10MG TABLET PO SCH ×2 (09:08→17:23)
[2019-06-23] MEDS: ZINC OXIDE 20% OINT 30GM TOP SCH ×2 (09:08→20:55)
[2019-06-23] MEDS: AMIODARONE HCL 200 MG TABLET PO SCH (09:09)
[2019-06-23] MEDS: HYDROXYCHLOROQUINE SULFATE 200MG TABLET PO SCH (09:10)
[2019-06-23] MEDS: CARVEDILOL 3.125 MG TABLET PO SCH ×2 (09:10→20:54)
[2019-06-23] MEDS: MYCOPHENOLATE MOFETIL 250MG CAPSULE PO SCH ×2 (09:10→20:48)
[2019-06-23] MEDS: FERROUS SULFATE 325MG TABLET PO SCH (09:10)
[2019-06-23] MEDS ORDERED: WARFARIN SODIUM 2.5MG TABLET PO SCH (18:00)
[2019-06-23 20:00] VITALS: BP 101/64
[2019-06-23] MEDS: FAMOTIDINE 20MG TABLET PO SCH (20:48)
[2019-06-24] MEDS: LEVOTHYROXINE SODIUM 50MCG TABLET PO SCH (06:02)
[2019-06-24 08:00] VITALS: BP 96/71
[2019-06-24] MEDS: MYCOPHENOLATE MOFETIL 250MG CAPSULE PO SCH ×2 (08:59→21:36)
[2019-06-24] MEDS: FERROUS SULFATE 325MG TABLET PO SCH (08:59)
[2019-06-24] MEDS: AMIODARONE HCL 200 MG TABLET PO SCH (09:01)
[2019-06-24] MEDS: HYDROXYCHLOROQUINE SULFATE 200MG TABLET PO SCH (09:01)
[2019-06-24] MEDS: TRIAMCINOLONE ACETONIDE 0.1 % OINT 15GM TOP SCH ×2 (09:02→21:38)
[2019-06-24] MEDS: CARVEDILOL 3.125 MG TABLET PO SCH ×2 (09:02→21:00)
[2019-06-24] MEDS: PANTOT AC/MIN OIL/PET HY-PHL OINT (AQUAPHOR) TOP SCH ×2 (09:02→21:38)
[2019-06-24] MEDS: ZINC OXIDE 20% OINT 30GM TOP SCH ×2 (09:03→21:38)
[2019-06-24] MEDS: BACLOFEN 10MG TABLET PO SCH ×2 (09:06→17:57)
[2019-06-24] MEDS ORDERED: FUROSEMIDE 40MG TABLET PO SCH (13:00)
[2019-06-24] MEDS ORDERED: FAMO20TA8 PO (13:30)
[2019-06-24] MEDS ORDERED: LEVO50TA8 PO (13:30)
[2019-06-24] MEDS ORDERED: MUC103 INH (13:30)
[2019-06-24] MEDS ORDERED: FURO40TA5 PO (13:30)
[2019-06-24] MEDS ORDERED: ACET650S25 PO (13:30)
[2019-06-24] MEDS ORDERED: BACL-141 PO (13:30)
[2019-06-24] MEDS ORDERED: IPRA3AMP9 HHN ×2 (13:30)
[2019-06-24] MEDS ORDERED: HYDR200T35 PO (13:30)
[2019-06-24] MEDS ORDERED: ZNOU TOP (13:30)
[2019-06-24] MEDS ORDERED: ONDA4TAB50 PO (13:30)
[2019-06-24] MEDS ORDERED: TC1U15 TOP (13:30)
[2019-06-24] MEDS ORDERED: TUSSL PO (13:30)
[2019-06-24] MEDS ORDERED: AMI2 PO (13:30)
[2019-06-24] MEDS ORDERED: FERR325T23 PO (13:30)
[2019-06-24] MEDS ORDERED: CELL2 PO (13:30)
[2019-06-24] MEDS ORDERED: COR3 PO (13:30)
[2019-06-24] MEDS: FUROSEMIDE 40MG TABLET PO SCH (13:32)
[2019-06-24 13:53] LABS: BASOPHILS % 0.7 % (0.0-2.0); EOSINOPHILS % 1.2 % (0.0-5.0); HEMATOCRIT. 32.9 % (36.0-48.0); HEMOGLOBIN. 10.8 g/dL (12.0-16.0); LYMPHOCYTES % 9.5 % (20.0-50.0); MEAN CORPUSCULAR HEMOGLOBIN 33.7 pg (28.0-32.0); MEAN CORPUSCULAR VOLUME 102.7 fL (81.0-99.0); MEAN PLATELET VOLUME 7.1 fl (7.4-10.4); MONOCYTES % 7.3 % (2.0-8.0); NEUTROPHILS % 81.3 % (40.0-76.0); PLATELET 228 x1000/uL (130-400); RED CELL DISTRIBUTION WIDTH 18.4 % (11.6-14.6)
[2019-06-24 13:56] LABS: INR 2.1; PROTHROMBIN TIME 22.7 sec (9.6-11.0)
[2019-06-24 13:59] LABS: CHLORIDE 105 mEq/L (98-107)
[2019-06-24] MEDS ORDERED: WARFARIN SODIUM 2.5MG TABLET PO SCH (18:00)
[2019-06-24] MEDS: IPRATROPIUM/ALBUTEROL 0.5-3(2.5)MG/3ML NEB HHN SCH (19:52)
[2019-06-24] MEDS: ACETYLCYSTEINE 100MG/ML 10% VIAL 4ML INH SCH (19:52)
[2019-06-24 20:00] VITALS: BP 92/58
[2019-06-24] MEDS: FAMOTIDINE 20MG TABLET PO SCH (21:37)
[2019-06-24] MEDS: ACETAMINOPHEN 650MG/20.3ML UDC PO PRN (21:37)
[2019-06-25] MEDS: LEVOTHYROXINE SODIUM 50MCG TABLET PO SCH (06:04)
[2019-06-25 06:40] LABS: INR 2.1; PROTHROMBIN TIME 22.5 sec (9.6-11.0)
[2019-06-25 06:43] LABS: BASOPHILS % 0.4 % (0.0-2.0); EOSINOPHILS % 1.2 % (0.0-5.0); HEMATOCRIT. 29.6 % (36.0-48.0); HEMOGLOBIN. 9.9 g/dL (12.0-16.0); LYMPHOCYTES % 7.7 % (20.0-50.0); MEAN CORPUSCULAR HEMOGLOBIN 33.8 pg (28.0-32.0); MEAN CORPUSCULAR VOLUME 100.8 fL (81.0-99.0); MONOCYTES % 12.7 % (2.0-8.0); PLATELET 212 x1000/uL (130-400); RED BLOOD CELL COUNT 2.94 mill/uL (4.2-5.4); RED CELL DISTRIBUTION WIDTH 18.5 % (11.6-14.6)
[2019-06-25 08:30] VITALS: BP 103/66
[2019-06-25] MEDS: MYCOPHENOLATE MOFETIL 250MG CAPSULE PO SCH (08:49)
[2019-06-25] MEDS: FERROUS SULFATE 325MG TABLET PO SCH (08:49)
[2019-06-25] MEDS: AMIODARONE HCL 200 MG TABLET PO SCH (08:50)
[2019-06-25] MEDS: FUROSEMIDE 40MG TABLET PO SCH (08:50)
[2019-06-25] MEDS: HYDROXYCHLOROQUINE SULFATE 200MG TABLET PO SCH (08:50)
[2019-06-25] MEDS: BACLOFEN 10MG TABLET PO SCH ×2 (08:50→17:00)
[2019-06-25] MEDS: PANTOT AC/MIN OIL/PET HY-PHL OINT (AQUAPHOR) TOP SCH (08:50)
[2019-06-25] MEDS: CARVEDILOL 3.125 MG TABLET PO SCH (08:50)
[2019-06-25] MEDS: ZINC OXIDE 20% OINT 30GM TOP SCH (08:51)
[2019-06-25] MEDS: TRIAMCINOLONE ACETONIDE 0.1 % OINT 15GM TOP SCH (08:51)
[2019-06-25] MEDS ORDERED: WARFARIN SODIUM 2.5MG TABLET PO NR (09:30)
[2019-06-25] MEDS ORDERED: HYDR200T35 PO (11:00)
[2019-06-25] MEDS ORDERED: SULF1TAB48 MT (11:00)
[2019-06-25 14:06] VITALS: BP 120/76
== END 2019-06-25 19:10 | disposition home or self-care (01) | DRG 190 ==
PROVIDERS: ADMIT Physical Medicine & Rehabilitation Spinal Cord Injury Medicine; ATTEND Family Medicine Adult Medicine
DX: J44.1 Chronic obstructive pulmonary disease with (acute) exacerbation (principal); J96.20 Acute and chronic respiratory failure, unspecified whether with hypoxia or hypercapnia; E87.1 Hypo-osmolality and hyponatremia; G62.81 Critical illness polyneuropathy; I13.0 Hypertensive heart and chronic kidney disease with heart failure and stage 1 through stage 4 chronic kidney disease, or unspecified chronic kidney disease; I42.9 Cardiomyopathy, unspecified; I48.20 Chronic atrial fibrillation, unspecified; I48.92 Unspecified atrial flutter; I50.42 Chronic combined systolic (congestive) and diastolic (congestive) heart failure; N17.9 Acute kidney failure, unspecified; J90 Pleural effusion, not elsewhere classified; B18.2 Chronic viral hepatitis C; D63.8 Anemia in other chronic diseases classified elsewhere; E03.9 Hypothyroidism, unspecified; E61.1 Iron deficiency; E87.5 Hyperkalemia; I05.9 Rheumatic mitral valve disease, unspecified; I48.0 Paroxysmal atrial fibrillation; Z95.0 Presence of cardiac pacemaker; Z86.74 Personal history of sudden cardiac arrest; Z79.01 Long term (current) use of anticoagulants; Z86.79 Personal history of other diseases of the circulatory system; Z87.891 Personal history of nicotine dependence; Z95.2 Presence of prosthetic heart valve; Z96.641 Presence of right artificial hip joint; M32.9 Systemic lupus erythematosus, unspecified; N18.9 Chronic kidney disease, unspecified; M81.0 Age-related osteoporosis without current pathological fracture; M47.817 Spondylosis without myelopathy or radiculopathy, lumbosacral region; N26.1 Atrophy of kidney (terminal); R13.10 Dysphagia, unspecified
CPT/HCPCS: 36415; 71045; 80048; 80053; 82306; 82533; 82607; 82728; 82746; 82962; 83520; 83540; 83550; 83735; 84100; 84134; 84439; 84443; 84481; 85025; 86376; 92610; 93005; 93970; 94640; 97110; 97112; 97116; 97162; 97166; 97530; 97535; 97542; J1650; J7517; J7608; Q0162

== ENCOUNTER 2020-03-23 12:41 | Emergency (ER) | payer MEDICARE, MEDICAID ==
[~2020-03-23] VITALS: Ht 157.5 cm; Wt 50.0 kg
[~2020-03-23 12:41] MED LIST changes: -ACET-2708 PO; +ACET650S25 PO; -ALEN70TA68 PO; +AMI2 PO; -AMLO5TAB88 PO; +CELL2 PO; +COR3 PO; -COR6 PO; +DENO60DI SQ; -DILT60TA3 PO; +FAMO20TA8 PO; -FERR-63 PO; +FERR325T23 PO; -FURO-151 MT; +FURO40TA5 PO; +GUAI120017 PO; -HYDR-459 MT; +LEVO50TA8 PO; +LIDO30CR46 TP; +MUC103 INH; -MUC20 INH; +ONDA4TAB50 PO; +SODI15OR5 PO; +TC1U15 TOP; +TUSSL PO; +WARF-53 MT; +ZNOU TOP
[2020-03-23 14:04] LABS: HEMATOCRIT. 31.2 % (36.0-48.0); HEMOGLOBIN. 10.2 g/dL (12.0-16.0); MEAN CORPUSCULAR HEMOGLOBIN 29.1 pg (28.0-32.0); MEAN CORPUSCULAR VOLUME 89.3 fL (81.0-99.0); MEAN PLATELET VOLUME 6.6 fl (7.4-10.4); PLATELET 231 x1000/uL (130-400); RED CELL DISTRIBUTION WIDTH 15.7 % (11.6-14.6)
[2020-03-23 14:17] LABS: PARTIAL THROMBOPLASTIN TIME 68.3 sec (23.4-31.0); PROTHROMBIN TIME 71.6 sec (9.6-11.0)
[2020-03-23 14:23] LABS: INR 7.6
[2020-03-23 14:43] LABS: PLATELET ESTIMATE NORMAL
[2020-03-23 15:11] VITALS: BP 91/53
== END 2020-03-23 16:17 | disposition home or self-care (01) ==
LOC: ER 12:57
DX: T45.511A Poisoning by anticoagulants, accidental (unintentional), initial encounter (principal); I11.0 Hypertensive heart disease with heart failure; I50.9 Heart failure, unspecified; I48.91 Unspecified atrial fibrillation; Z79.899 Other long term (current) drug therapy; Z88.8 Allergy status to other drugs, medicaments and biological substances; Z88.1 Allergy status to other antibiotic agents; Z88.3 Allergy status to other anti-infective agents; Z98.890 Other specified postprocedural states
CPT/HCPCS: 36415; 71045; 80048; 85025; 86850; 86900; 93005; 99285

== ENCOUNTER 2020-04-12 18:57 | Inpatient (IN) | payer MEDICARE, MEDICAID ==
[~2020-04-12] VITALS: Ht 162.6 cm; Wt 58.0 kg
[2020-04-12 19:42] LABS: HEMATOCRIT. 31.5 % (36.0-48.0); HEMOGLOBIN. 10.3 g/dL (12.0-16.0); MEAN CORPUSCULAR HEMOGLOBIN 29.7 pg (28.0-32.0); MEAN CORPUSCULAR VOLUME 90.7 fL (81.0-99.0); MEAN PLATELET VOLUME 6.2 fl (7.4-10.4); PLATELET 358 x1000/uL (130-400); RED BLOOD CELL COUNT 3.47 mill/uL (4.2-5.4); RED CELL DISTRIBUTION WIDTH 15.8 % (11.6-14.6)
[2020-04-12 19:49] LABS: CHLORIDE 110 mEq/L (98-107)
[2020-04-12 19:51] LABS: INR 3.8; PROTHROMBIN TIME 37.3 sec (9.6-11.0)
[2020-04-12] MEDS ORDERED: AZITHROMYCIN 500 MG in DEXT 5% WATER 250 ML IV SCH (20:00)
[2020-04-12] MEDS ORDERED: CEFTRIAXONE 1 G PREMIX 50 ML IV ONE (20:00)
[2020-04-12 21:34] LABS: NUCLEATED RED BLOOD CELLS 1 /100 WBC; PLATELET ESTIMATE NORMAL
[2020-04-13] MEDS: FUROSEMIDE 40MG/4ML VIAL IVP SCH (09:00)
[2020-04-13] MEDS ORDERED: ONDANSETRON HCL 4MG/2ML INJ IV PRN (10:15)
[2020-04-13] MEDS ORDERED: ACETAMINOPHEN 325MG TABLET PO PRN (10:15)
[2020-04-13] MEDS ORDERED: HYDROCODONE/APAP 7.5/325MG 1 TAB TABLET PO PRN (10:30)
[2020-04-13] MEDS ORDERED: GUAIFENESIN-DM 200MG-20MG/10ML UDC PO PRN (10:30)
[2020-04-13] MEDS ORDERED: IPRATROPIUM/ALBUTEROL 0.5-3(2.5)MG/3ML NEB HHN PRN (10:30)
[2020-04-13] MEDS: AMIODARONE HCL 200 MG TABLET PO SCH (12:41)
[2020-04-13] MEDS ORDERED: ALBUTEROL 6.7GM HFA INHALER ORI PRN (12:45)
[2020-04-13 16:22] LABS: T4 FREE 1.96 ng/dL (0.76-1.46)
[2020-04-13] MEDS: HYDROXYCHLOROQUINE SULFATE 200MG TABLET PO SCH (18:00)
[2020-04-13 18:45] LABS: INR 3.6; PROTHROMBIN TIME 35.7 sec (9.6-11.0)
[2020-04-13] MEDS ORDERED: CEFTRIAXONE 1 G PREMIX 50 ML IV SCH (20:00)
[2020-04-13] MEDS ORDERED: HEPARIN 5000 UNITS/ML VIAL SUBCUT SCH (21:00)
[2020-04-13] MEDS: AZITHROMYCIN 500 MG in DEXT 5% WATER 250 ML IV SCH (21:45)
[2020-04-13] MEDS: FAMOTIDINE 20MG TABLET PO SCH (22:00)
[2020-04-13] MEDS: MYCOPHENOLATE MOFETIL 250MG CAPSULE PO SCH (22:00)
[2020-04-13] MEDS: CARVEDILOL 3.125 MG TABLET PO SCH (22:00)
[2020-04-14] MEDS ORDERED: LEVOTHYROXINE SODIUM 50MCG TABLET PO SCH (06:30)
[2020-04-14 06:34] LABS: CLARITY URINE CLOUDY (CLEAR); COLOR URINE DARK YELLOW (YELLOW); KETONES URINE TRACE (NEGATIVE); LEUKOCYTE ESTERASE URINE 3+ (NEGATIVE); NITRITE URINE NEGATIVE (NEGATIVE); OCCULT BLOOD URINE TRACE (NEGATIVE); PROTEIN URINE TRACE (NEGATIVE); SPECIFIC GRAVITY URINE 1.019 (1.005-1.030)
[2020-04-14] MEDS: FUROSEMIDE 40MG/4ML VIAL IVP SCH (09:00)
[2020-04-14] MEDS ORDERED: SULFAMETHOXAZOLE/TRIMETHOPRIM 800/160MG TABLET PO SCH (09:00)
[2020-04-14] MEDS ORDERED: HYDROXYCHLOROQUINE SULFATE 200MG TABLET PO SCH (09:00)
[2020-04-14] MEDS: CARVEDILOL 3.125 MG TABLET PO SCH ×2 (09:00→23:24)
[2020-04-14] MEDS: FERROUS SULFATE 325MG TABLET PO SCH (09:29)
[2020-04-14] MEDS: MYCOPHENOLATE MOFETIL 250MG CAPSULE PO SCH ×2 (09:29→22:10)
[2020-04-14] MEDS: AMIODARONE HCL 200 MG TABLET PO SCH (09:30)
[2020-04-14] MEDS: ATOVAQUONE 750 MG/5 ML ORAL.SUSP PO SCH (09:30)
[2020-04-14 10:08] LABS: HEMATOCRIT. 31.2 % (36.0-48.0); HEMOGLOBIN. 9.8 g/dL (12.0-16.0); MEAN CORPUSCULAR HEMOGLOBIN 28.4 pg (28.0-32.0); MEAN CORPUSCULAR VOLUME 90.4 fL (81.0-99.0); MEAN PLATELET VOLUME 6.4 fl (7.4-10.4); PLATELET 282 x1000/uL (130-400); RED BLOOD CELL COUNT 3.45 mill/uL (4.2-5.4); RED CELL DISTRIBUTION WIDTH 16.2 % (11.6-14.6)
[2020-04-14 10:11] LABS: PROTHROMBIN TIME 41.2 sec (9.6-11.0)
[2020-04-14 10:16] LABS: CHLORIDE 110 mEq/L (98-107)
[2020-04-14 10:37] LABS: INR 4.2
[2020-04-14 11:09] LABS: PLATELET ESTIMATE NORMAL
[2020-04-14 11:23] LABS: BG BASE EXCESS -14.9 mmol/L (-2.0-2.0); BG CARBOXYHEMOGLOBIN 0.3 % (0.5-1.5); BG DEOXYHEMOGLOBIN 2.2 % (0.0-5.0); BG FRACTION INSPIRED OXYGEN 100; BG HCO3 ACT 11.4 mmol/L (22.0-26.0); BG METHEMOGLOBIN 0.6 % (0.0-1.5); BG OXYGEN SATURATION 97.8 % (92.0-98.5); BG OXYHEMOGLOBIN 96.9 % (94.0-97.0); BG PCO2 28.3 mmHg (35.0-45.0); BG PH 7.222 (7.350-7.450); BG PO2 125.3 mmHg (75.0-100.0); BG SAMPLE SITE RIGHT RADIAL; BG TOTAL HEMOGLOBIN 7.7 g/dL (12.0-18.0); BG TOTAL RESPIRATORY RATE 20 b/min; BG VENT MODE MASK - BIPAP
[2020-04-14] MEDS ORDERED: CEFTRIAXONE 1,000 MG in DEXTROSE 5% WATER 50 ML IV SCH (18:00)
[2020-04-14] MEDS: HYDROXYCHLOROQUINE SULFATE 200MG TABLET PO SCH (18:59)
[2020-04-14] MEDS: CEFTRIAXONE 1 G PREMIX 50 ML IV SCH (18:59)
[2020-04-14] MEDS: AZITHROMYCIN 500 MG in DEXT 5% WATER 250 ML IV SCH (22:10)
[2020-04-14] MEDS: FAMOTIDINE 20MG TABLET PO SCH (22:10)
[2020-04-15 07:04] LABS: HEMATOCRIT. 32.5 % (36.0-48.0); HEMOGLOBIN. 10.3 g/dL (12.0-16.0); MEAN CORPUSCULAR HEMOGLOBIN 28.6 pg (28.0-32.0); MEAN PLATELET VOLUME 6.8 fl (7.4-10.4); PLATELET 299 x1000/uL (130-400); RED BLOOD CELL COUNT 3.61 mill/uL (4.2-5.4); RED CELL DISTRIBUTION WIDTH 15.7 % (11.6-14.6)
[2020-04-15 07:06] LABS: CHLORIDE 105 mEq/L (98-107)
[2020-04-15 07:23] LABS: PROTHROMBIN TIME 49.2 sec (9.6-11.0)
[2020-04-15 07:39] LABS: INR 5.1
[2020-04-15] MEDS: AMIODARONE HCL 200 MG TABLET PO SCH (10:19)
[2020-04-15] MEDS: FUROSEMIDE 40MG/4ML VIAL IVP SCH (10:19)
[2020-04-15] MEDS: POTASSIUM CHLORIDE 20MEQ TABLET SR PO SCH (10:19)
[2020-04-15] MEDS: MYCOPHENOLATE MOFETIL 250MG CAPSULE PO SCH ×2 (10:19→22:40)
[2020-04-15] MEDS: FERROUS SULFATE 325MG TABLET PO SCH (10:20)
[2020-04-15] MEDS: CARVEDILOL 3.125 MG TABLET PO SCH ×2 (10:20→22:39)
[2020-04-15] MEDS: ATOVAQUONE 750 MG/5 ML ORAL.SUSP PO SCH (10:21)
[2020-04-15 10:50] LABS: PLATELET ESTIMATE NORMAL
[2020-04-15] MEDS: HYDROXYCHLOROQUINE SULFATE 200MG TABLET PO SCH (17:58)
[2020-04-15] MEDS: CEFTRIAXONE 1 G PREMIX 50 ML IV SCH (17:58)
[2020-04-15 18:48] LABS: BG BASE EXCESS -3.4 mmol/L (-2.0-2.0); BG CARBOXYHEMOGLOBIN 0.2 % (0.5-1.5); BG DEOXYHEMOGLOBIN 9.9 % (0.0-5.0); BG FRACTION INSPIRED OXYGEN 100; BG HCO3 ACT 21.1 mmol/L (22.0-26.0); BG METHEMOGLOBIN 0.3 % (0.0-1.5); BG OXYGEN SATURATION 90.1 % (92.0-98.5); BG OXYHEMOGLOBIN 89.6 % (94.0-97.0); BG PCO2 35.9 mmHg (35.0-45.0); BG PH 7.387 (7.350-7.450); BG PO2 62.3 mmHg (75.0-100.0); BG SAMPLE SITE RIGHT RADIAL; BG TOTAL HEMOGLOBIN 10.9 g/dL (12.0-18.0); BG VENT MODE MASK - NRB
[2020-04-15] MEDS: FAMOTIDINE 20MG TABLET PO SCH (21:39)
[2020-04-15] MEDS: AZITHROMYCIN 500 MG in DEXT 5% WATER 250 ML IV SCH (22:39)
[2020-04-16] MEDS ORDERED: NOREPINEPHRINE 8 MG in DEXT 5% WATER 242 ML IV PRN (01:45)
[2020-04-16 04:32] LABS: BG BASE EXCESS -12.7 mmol/L (-2.0-2.0); BG CARBOXYHEMOGLOBIN 0.7 % (0.5-1.5); BG FRACTION INSPIRED OXYGEN 100; BG HCO3 ACT 16.2 mmol/L (22.0-26.0); BG METHEMOGLOBIN 0.3 % (0.0-1.5); BG OXYGEN SATURATION 84.8 % (92.0-98.5); BG PH 7.136 (7.350-7.450); BG PO2 66.6 mmHg (75.0-100.0); BG SAMPLE SITE RIGHT RADIAL; BG TOTAL HEMOGLOBIN 12.4 g/dL (12.0-18.0); BG VENT MODE VENT - AC
[2020-04-16] MEDS ORDERED: SODIUM BICARBONATE 8.4% 1 MEQ/ML 50ML SYR IV NR (08:30)
[2020-04-16] MEDS: CARVEDILOL 3.125 MG TABLET PO SCH (09:00)
[2020-04-16] MEDS: AMIODARONE HCL 200 MG TABLET PO SCH (09:00)
[2020-04-16] MEDS: FUROSEMIDE 40MG/4ML VIAL IVP SCH (09:43)
[2020-04-16] MEDS: POTASSIUM CHLORIDE 20MEQ TABLET SR PO SCH (09:43)
[2020-04-16 10:24] LABS: HEMATOCRIT. 34.9 % (36.0-48.0); HEMOGLOBIN. 10.8 g/dL (12.0-16.0); MEAN CORPUSCULAR HEMOGLOBIN 28.3 pg (28.0-32.0); MEAN PLATELET VOLUME 6.7 fl (7.4-10.4); PLATELET 362 x1000/uL (130-400); RED BLOOD CELL COUNT 3.84 mill/uL (4.2-5.4); RED CELL DISTRIBUTION WIDTH 15.9 % (11.6-14.6)
[2020-04-16 10:38] LABS: PROTHROMBIN TIME 69.1 sec (9.6-11.0)
[2020-04-16 10:40] LABS: CHLORIDE 112 mEq/L (98-107)
[2020-04-16] MEDS: MYCOPHENOLATE MOFETIL 250MG CAPSULE PO SCH (11:14)
[2020-04-16] MEDS: FERROUS SULFATE 325MG TABLET PO SCH (11:14)
[2020-04-16] MEDS: ATOVAQUONE 750 MG/5 ML ORAL.SUSP PO SCH (11:14)
[2020-04-16 11:36] LABS: INR 7.3
[2020-04-16 11:54] LABS: PLATELET ESTIMATE NORMAL
[2020-04-16 13:27] LABS: BG BASE EXCESS -3.9 mmol/L (-2.0-2.0); BG CARBOXYHEMOGLOBIN 0.3 % (0.5-1.5); BG HCO3 ACT 22.1 mmol/L (22.0-26.0); BG METHEMOGLOBIN 0.4 % (0.0-1.5); BG OXYGEN SATURATION 85.9 % (92.0-98.5); BG OXYHEMOGLOBIN 85.3 % (94.0-97.0); BG PCO2 43.9 mmHg (35.0-45.0); BG PO2 56.1 mmHg (75.0-100.0); BG SAMPLE SITE RIGHT RADIAL; BG TOTAL HEMOGLOBIN 12.3 g/dL (12.0-18.0); BG VENT MODE VENT - AC
[2020-04-16] MEDS ORDERED: FUROSEMIDE 40MG/4ML VIAL IVP NR (14:00)
[2020-04-16] MEDS ORDERED: METHYLPREDNISOLONE SOD SUCC 125 MG/2 ML VIAL IV SCH (14:00)
[2020-04-16] MEDS ORDERED: LORAZEPAM 2MG/ML CPJ IV PRN (14:15)
[2020-04-16] MEDS ORDERED: DEXTROSE 50% WATER 50ML SYRINGE IV ONE (15:00)
[2020-04-16] MEDS ORDERED: MORPHINE SULFATE 2 MG/ML CPJ (NOT FOR IM USE) IV NR (15:00)
[2020-04-16] MEDS ORDERED: ATROPINE SULFATE 1MG/10ML SYR ONE (15:00)
[2020-04-16] MEDS ORDERED: CALCIUM CHLORIDE 1GM/10ML SYR IV ONE (15:00)
[2020-04-16] MEDS ORDERED: EPINEPHRINE 0.1MG/ML (1:10,000) 10ML SYR ONE (15:00)
[2020-04-16] MEDS ORDERED: LIDOCAINE HCL 2% 5ML SYRINGE IV ONE (15:00)
[2020-04-16] MEDS ORDERED: MORPHINE SULFATE 250 MG in DEXT 5% WATER 240 ML IV PRN (15:30)
[2020-04-16 15:57] VITALS: BP 112/78
[2020-04-16] MEDS ORDERED: FUROSEMIDE 40MG/4ML VIAL IVP SCH (17:15)
[2020-04-16] MEDS ORDERED: PHYTONADIONE 5 MG/5ML ORAL SYRINGE NG NR (17:15)
== END 2020-04-16 18:15 | disposition expired | DRG 871 ==
LOC: ER 18:57 → MICUSO 21:24 → EDBEDREQTM 21:24 → EDBEDREQSVC 21:24 → EDBEDREQ 21:28 → MICUSO 04-14 15:44
PROVIDERS: ADMIT Internal Medicine; ATTEND Internal Medicine
PROC: 5A1935Z Respiratory Ventilation, Less than 24 Consecutive Hours (ICD-10-PCS; principal; 2020-04-12)
PROC: 06HY33Z Insertion of Infusion Device into Lower Vein, Percutaneous Approach (ICD-10-PCS; 2020-04-12)
PROC: B54BZZA Ultrasonography of Right Lower Extremity Veins, Guidance (ICD-10-PCS; 2020-04-12)
PROC: 5A09457 Assistance with Respiratory Ventilation, 24-96 Consecutive Hours, Continuous Positive Airway Pressure (ICD-10-PCS; 2020-04-16)
PROC: 0BH18EZ Insertion of Endotracheal Airway into Trachea, Via Natural or Artificial Opening Endoscopic (ICD-10-PCS; 2020-04-16)
DX: A41.9 Sepsis, unspecified organism (principal); J96.01 Acute respiratory failure with hypoxia; G93.41 Metabolic encephalopathy; I50.43 Acute on chronic combined systolic (congestive) and diastolic (congestive) heart failure; J18.9 Pneumonia, unspecified organism; E87.2 Acidosis; I13.0 Hypertensive heart and chronic kidney disease with heart failure and stage 1 through stage 4 chronic kidney disease, or unspecified chronic kidney disease; N17.9 Acute kidney failure, unspecified; E44.0 Moderate protein-calorie malnutrition; D84.821 Immunodeficiency due to drugs; I42.9 Cardiomyopathy, unspecified; D68.9 Coagulation defect, unspecified; I48.92 Unspecified atrial flutter; J44.0 Chronic obstructive pulmonary disease with (acute) lower respiratory infection; G93.1 Anoxic brain damage, not elsewhere classified; R65.20 Severe sepsis without septic shock; B18.2 Chronic viral hepatitis C; M32.9 Systemic lupus erythematosus, unspecified; D64.9 Anemia, unspecified; E03.9 Hypothyroidism, unspecified; E05.90 Thyrotoxicosis, unspecified without thyrotoxic crisis or storm; I05.9 Rheumatic mitral valve disease, unspecified; I48.0 Paroxysmal atrial fibrillation; I49.5 Sick sinus syndrome; M24.561 Contracture, right knee; M43.12 Spondylolisthesis, cervical region; M43.16 Spondylolisthesis, lumbar region; M47.817 Spondylosis without myelopathy or radiculopathy, lumbosacral region; I48.91 Unspecified atrial fibrillation; M81.0 Age-related osteoporosis without current pathological fracture; N18.9 Chronic kidney disease, unspecified; Z96.641 Presence of right artificial hip joint; N26.1 Atrophy of kidney (terminal); Z66 Do not resuscitate; Z86.74 Personal history of sudden cardiac arrest; Z79.01 Long term (current) use of anticoagulants; Z86.79 Personal history of other diseases of the circulatory system; Z87.01 Personal history of pneumonia (recurrent); Z87.891 Personal history of nicotine dependence; Z95.0 Presence of cardiac pacemaker; Z95.2 Presence of prosthetic heart valve; Z68.21 Body mass index [BMI] 21.0-21.9, adult; Z88.8 Allergy status to other drugs, medicaments and biological substances; Z51.5 Encounter for palliative care; Z79.899 Other long term (current) drug therapy
CPT/HCPCS: 36415; 36600; 71045; 76770; 78580; 80048; 80053; 81003; 82375; 82805; 82962; 83605; 83735; 83880; 84439; 84443; 84484; 85025; 87635; 93005; 94002; 94003; 94660; 96365; 99291; J0456; J0461; J0696; J1940; J2274; J3430; J3490; J7060; J7517